=== PATIENT | female | born 1945 | race Caucasian/White ===

== ENCOUNTER → 2019-11-27 08:30 | Outpatient (BNVA) | payer MEDICARE, SELFPAY | PROVIDERS: Family Provider Nurse Practitioner Family; Visit Provider Nurse Practitioner Psychiatric/Mental Health | DX: F32.89 Other specified depressive episodes (principal); F41.0 Panic disorder [episodic paroxysmal anxiety]; F17.210 Nicotine dependence, cigarettes, uncomplicated | CPT/HCPCS: 99213 ==

== ENCOUNTER → 2020-03-25 09:58 | Outpatient (BNVA) | payer MEDICARE, SELFPAY | PROVIDERS: Family Provider Nurse Practitioner Family; Visit Provider Nurse Practitioner Psychiatric/Mental Health | DX: F41.0 Panic disorder [episodic paroxysmal anxiety]; F17.210 Nicotine dependence, cigarettes, uncomplicated; F33.1 Major depressive disorder, recurrent, moderate; F43.12 Post-traumatic stress disorder, chronic | CPT/HCPCS: 99213 ==

== ENCOUNTER 2020-08-06 14:04 | Emergency (ER) | payer MEDICARE, SELFPAY ==
[2020-08-06 14:14] VITALS: BP 118/75; PULSE 113; RESP 18; TEMP 36.3; O2SAT 98; BMI 28.7
[2020-08-06] MEDS: orphenadrine 30 mg/mL Inj 2 mL 60 MG IM (14:56)
[2020-08-06 14:58] VITALS: RESP 18
[2020-08-06] MEDS: morphine 4 mg/mL SDV 1 mL IM (14:58)
--- NOTE | 2020-08-06 15:36 | XR_ITS ---
WS: [id number] LUMBAR SPINE: 3 VIEWS TECHNIQUE: AP, lateral and L5-S1 spot. HISTORY: pain COMPARISON: 03/30/2017 Mild LEFT convex curvature lower lumbar spine. Mild disc space narrowing and endplate osteophytes thr oughout the lumbar spine. No fracture. Most significant disc space narrowing at L1-2. SI joints are symmetric bilaterally. No soft tissue abnormalities. Prior cholecystectomy. Surgical sutures are present in the pelvis. XR/XR lumbar spine 2-3V* [id number] IMPRESSION: Moderate chronic spondylitic changes in the lumbar spine. No acute fracture.
--- NOTE | 2020-08-06 15:36 | XR_ITS ---
WS: [id number] XR thoracic spine 3V* [id number] REASON FOR EXAM: pain FINDINGS: No thoracic vertebral body compression deformity or other focal vertebral body abnormality is identif ied. Disc space narrowing with osteophytic spurring T10 and L1. XR/XR thoracic spine 3V* [id number] IMPRESSION: No acute abnormality.
--- NOTE | 2020-08-06 15:49 | ED_ITS ---
HPI - Back Pain/Injury General: Chief Complaint: Back Pain/Injury Stated Complaint: SEVERE BACK PAIN, SENT FROM Time Seen by Provider: 08/06/20 14:19 History of Present Illness: HPI Narrative: 74-year-old female comes in complaining of mid to low back pain that she woke up with today. It was progressively worsening over the last couple days and then she woke up with severe pain in the left lower side adjacent to spine. She went to her primary care office and they directed her here. She denies any trauma she does not recall any particular episode that seem to precipitate that she has no difficulty with pain radiating to her legs no loss of bowel or bladder control no rash. MD elicited complaint: back pain Pertinent past history: prior back pain Onset (ago): day(s) Timing: constant Severity: severe Similar Symptoms Previously: Yes Quality: sharp Location: thoracic spine (lower ) Radiation: none Exacerbating factors: movement, sitting upright and walking Relieving factors: immobilization and supine Associated symptoms: Deny abdominal pain, arthralgias, chills, change in bowel habits, difficulty walking, dysuria, fatigue, fecal incontinence, fever(s), hematuria, myalgias, nausea, numbness, syncope, tingling/numbness/burning, urinary frequency, urinary urgency, vomiting or weakness Review of Systems Const: Denies: fever(s), chills or fatigue ENMT: Denies: throat pain, ear or mastoid pain, nasal discharge or nasal congestion Card: Denies: syncope Resp: Denies: dyspnea, productive cough or non-productive cough GI: Denies: abdominal pain, nausea, vomiting, fecal incontinence or change in bowel habits : Denies: dysuria, urinary urgency or hematuria Skin/Breast: Denies: rash or pruritus Neuro: Denies: difficulty walking PFS ED PFSH: Medical History Nicotine dependence, cigarettes, uncomplicated Other specified depressive episodes Panic attacks Physical Exam Const: COMMON NORMALS: no acute distress GENERAL APPEARANCE: cooperative and comfortable ORIENTATION/CONSCIOUSNESS: Yes awake, Yes oriented to person, Yes oriented to place and Yes oriented to time HENMT: COMMON NORMALS: normocephalic, atraumatic and hearing grossly normal bilaterally HEAD & SCALP: normocephalic and atraumatic Neck/C-Spine: COMMON NORMALS: full ROM, no lymphadenopathy, supple and no JVD Resp: COMMON NORMALS: normal respiratory effort, No retractions, No use of accessory muscles and clear to auscultation bilaterally AUSCULTATION: clear to auscultation bilaterally Cardio: COMMON NORMALS: no JVD, regular rate, regular rhythm and No murmurs present (Cardio) RATE: regular rate RHYTHM: regular rhythm GI: COMMON NORMALS: Soft to palpation and No hepatosplenomegaly present AUSCULTATION: Yes normoactive bowel sounds PALPATION: Yes Soft to palpation, No Tenderness to palpation present (GI), No Guarding due to palpation present (GI) and Yes No hepatosplenomegaly present Extremity: COMMON NORMALS: normal to inspection, capillary refill normal, no clubbing, cyanosis or edema, no calf tenderness and no pedal edema Neuro: SENSORIUM/ORIENTATION: Yes oriented to person, Yes oriented to place and Yes oriented to time Skin: COMMON NORMALS: no rashes or lesions noted GENERAL SKIN EXAM: no rashes or lesions noted Course Vital Signs: Vital signs: Vital Signs Temperature 97.4 F L 08/06/20 14:14 Pulse Rate 113 H 08/06/20 14:14 Respiratory Rate 18 08/06/20 14:58 Blood Pressure 118/75 08/06/20 14:14 Pulse Oximetry 98 08/06/20 14:14 MDM - Back Pain/Injury MDM Narrative: Medical decision making narrative: No compression fracture noted on plain x-ray we will go ahead and discharge home treat for musculoskeletal back pain follow-up with primary care if not improving Discharge Plan Discharge Patient Disposition: Home Clinical Impression: Thoracic back pain Condition: Stable Prescriptions: New tramadol 50 mg tablet 50 mg PO Q8H PRN (Reason: pain) Qty: 14 RF: 0 tizanidine 2 mg capsule 2 mg PO Q12H PRN (Reason: muscle spasticity) Qty: 14 RF: 0 No Action Janumet XR 50-1,000 mg tablet, ER multiphase 24 hr 1 tab PO DAILY@15 RF: 0 Trulicity 0.75 mg/0.5 mL pen injector 0.75 mg SUBCUT Q7D RF: 0 warfarin [Coumadin] 7.5 mg tablet See Rx Instructions .ROUTE .COMPLEX RF: 0 warfarin [Coumadin] 5 mg tablet 5 mg PO .COMPLEX RF: 0 Seroquel 200 mg Tablet 200 mg PO BEDTIME@03 RF: 0 clonazepam [Klonopin] 0.5 mg tablet 0.5 mg PO BEDTIME@03 RF: 0 gabapentin 300 mg capsule 300 mg PO TID@10,15,21 RF: 0 Discharge Orders: Discharge ED (Routine); Ordered 08/06/20 Ordered By: Therno Khan Referrals: Keena He PA [Primary Care Provider] - Discharge Diet: Usual diet Discharge Activity: Increase activity as tolerated Coding Level of Care Code ED [employer] Logger for Chg Fwd Exam Comprehensive
[2020-08-06 16:34] VITALS: BP 183/109; PULSE 88; RESP 16; O2SAT 97
== END 2020-08-06 16:34 | disposition home or self-care (01) ==
PROVIDERS: Emergency Provider Family Medicine; PCP Physician Assistant
DX: M54.6 Pain in thoracic spine (principal); Z79.01 Long term (current) use of anticoagulants
CPT/HCPCS: 12345; 72072; 72100; 96372; 99281; 99283; J2270; J2360

== ENCOUNTER → 2020-09-23 09:55 | Outpatient (BNVA) | payer MEDICARE, SELFPAY | PROVIDERS: PCP Physician Assistant; Visit Provider Nurse Practitioner Psychiatric/Mental Health | DX: F41.0 Panic disorder [episodic paroxysmal anxiety] (principal); F32.89 Other specified depressive episodes; Z79.899 Other long term (current) drug therapy; F17.210 Nicotine dependence, cigarettes, uncomplicated | CPT/HCPCS: 99214 ==

== ENCOUNTER → 2020-11-03 14:03 | Outpatient (BNVA) | payer MEDICARE, SELFPAY | PROVIDERS: PCP Physician Assistant; Visit Provider Nurse Practitioner Psychiatric/Mental Health | DX: Z79.899 Other long term (current) drug therapy (principal) | CPT/HCPCS: 80053; 80061; 83036 ==

== ENCOUNTER 2020-11-28 11:30 | Emergency (ER) | payer MEDICARE, SELFPAY ==
[2020-11-28 11:39] VITALS: BP 150/87; PULSE 98; RESP 20; TEMP 36.9; O2SAT 97; BMI 29.9
--- NOTE | 2020-11-28 12:36 | CT_ITS ---
WS: [id number] CT LUMBAR SPINE, noncontrast. HISTORY: sudden onset back pain TECHNIQUE: Contiguous 2.5 mm axial imaging are performed. Sagittal and coronal reformats are submitte d and reviewed. All CT scans at [facility] use at least one of these dose optimization te chniques: automated exposure control; mA and/or kV adjustment per patient size (includes targeted exa ms where dose is matched to clinical indication); or iterative reconstruction. IV contrast: None DLP: 2561.03 mGy.cm COMPARISON: 10/26/2018 Diffuse osteopenia. 5 mm retrolisthesis of L1 and L2. Endplate cystic changes at L4. No fractures. Di sc spaces are narrowed. Endplate osteophytes at all levels. L1-2: Mild disc bulging. No stenosis. L2-3: Diffuse osteophytic ridging and disc bulging. LEFT disc osteophyte causing mild effacement LEFT lateral thecal sac and narrowing of the LEFT foramen. L3-4: Mild annular disc bulging with effacement of the ventral CSF. Mild central stenosis. L4-5: Mild annular disc bulging with ligamentum flavum hypertrophy. Mild central and bilateral forami nal stenosis. L5-S1: Broad-based disc bulging centrally with mild encroachment upon the S1 nerve roots. Anastomotic sutures noted near the rectum. Atherosclerotic changes within the aorta. CT/CT lumbar spine wo con* [id number] IMPRESSION: 1. No acute lumbar spine fracture identified. 2. Multilevel moderate spondylitic changes with only mild progression since 10/26/2018. 3. Mild encroachment upon the S1 nerve roots bilaterally by disc disease. 4. Mild central stenosis at L3-4. 5. Mild central and bilateral foraminal stenosis at L4-5. 6. Disc osteophyte at L2-3 with mild encroachment upon the LEFT lateral thecal sac and foramen.
[2020-11-28] MEDS: ketorolac 30 mg/mL INJ IM (12:44)
[2020-11-28] MEDS: orphenadrine 30 mg/mL Inj 2 mL 60 MG IM (12:44)
--- NOTE | 2020-11-28 13:12 | W.ED.BACK ---
HPI - Back Pain/Injury General: Chief Complaint: Back Pain/Injury Stated Complaint: LOWER BACK PAIN Time Seen by Provider: 11/28/20 12:06 History of Present Illness: HPI Narrative: Sudden onset back pain that started last night. Pain is located on the right side of her back and in her lumbar spine. Pain is severe, radiates down her legs. She denies any weakness, paresthesia or tingling, fecal or urinary incontinence or perianal anesthesia. She had some similar happen about 4 or 5 months ago and improved following pain medication and muscle relaxants. She denies any trauma or falls recently. MD elicited complaint: back pain Pertinent past history: prior back pain Onset (ago): day(s) (1) Timing: constant Severity: severe Quality: sharp Location: lumbar spine Radiation: left leg below the knee and right leg below the knee Exacerbating factors: movement and sitting upright Relieving factors: supine Associated symptoms: Deny abdominal pain, arthralgias, chills, change in bowel habits, difficulty walking, dysuria, fatigue, fecal incontinence, fever(s), hematuria, myalgias, nausea, numbness, syncope, tingling/numbness/burning, urinary frequency, urinary urgency, vomiting or weakness Treatments prior to arrival: acetaminophen Review of Systems General: Reports: 10 or more systems reviewed and unremarkable except in HPI and below Const: Denies: fever(s), chills or fatigue Card: Denies: syncope GI: Denies: abdominal pain, nausea, vomiting, fecal incontinence or change in bowel habits : Denies: dysuria, urinary urgency or hematuria Neuro: Denies: difficulty walking [facility] ED PFSH: Medical History Nicotine dependence, cigarettes, uncomplicated Other specified depressive episodes Panic attacks Physical Exam Const: COMMON NORMALS: no acute distress, average body habitus, patient oriented x3, no limitations, healthy appearing, alert and well nourished HENMT: COMMON NORMALS: normocephalic, atraumatic and moist oral mucous membranes HEAD & SCALP: normocephalic and atraumatic Neck/C-Spine: COMMON NORMALS: no meningeal signs and no JVD Resp: COMMON NORMALS: normal respiratory effort, No retractions, No use of accessory muscles, clear to auscultation bilaterally and percussion normal AUSCULTATION: clear to auscultation bilaterally PERCUSSION: percussion normal Cardio: COMMON NORMALS: no JVD, regular rate, regular rhythm, S1 normal heart sound present, S2 normal heart sound present, No gallops present (Cardio), No clicks present (Cardio), No murmurs present (Cardio), No rub (Cardio) and Peripheral pulses 2+ throughout RATE: regular rate RHYTHM: regular rhythm HEART SOUNDS: S1 normal heart sound present and S2 normal heart sound present PERIPHERAL PULSES: Peripheral pulses 2+ throughout GI: COMMON NORMALS: Normal to inspection, nondistended, normoactive bowel sounds present, Soft to palpation, non-tender, No hepatosplenomegaly present, no masses and no bruits PALPATION: Yes Soft to palpation and Yes No hepatosplenomegaly present Back/Pelvis: LUMBAR SPINE/LOWER BACK: Yes normal to inspection, Yes lumbar spinal tenderness, Yes paraspinal muscle tenderness, Yes paraspinal muscle spasm and Yes straight leg raise negative bilaterally Extremity: COMMON NORMALS: normal to inspection, full ROM, capillary refill normal, no calf tenderness and no pedal edema Neuro: COMMON NORMALS: patient oriented x3 SENSORIUM/ORIENTATION: Yes alert MENINGEAL SIGNS: Yes no meningeal signs Skin: COMMON NORMALS: no rashes or lesions noted, no wounds, turgor normal, no jaundice, no petechiae and no mottling GENERAL SKIN EXAM: no rashes or lesions noted and turgor normal Course Reevaluation(s): Reevaluation #1: Discussed her imaging findings with her, she has several degenerative disks as well as mild spinal stenosis. I believe this is responsible for her symptoms. Pain improved with intramuscular medication and she is discharged home with a prescription for hydrocodone and a muscle relaxant. She voiced understanding and is in agreement with the plan. Time: 13:42 Vital Signs: Vital signs: Vital Signs Temperature 98.4 F 11/28/20 11:39 Pulse Rate 98 11/28/20 11:39 Respiratory Rate 20 H 11/28/20 11:39 Blood Pressure 150/87 11/28/20 11:39 Pulse Oximetry 97 11/28/20 11:39 MDM - Back Pain/Injury MDM Narrative: Medical decision making narrative: 74-year-old female patient who presents to the emergency department with back pain. Evaluation in the emergency department is consistent with degenerative disc disease and spondylosis. She is managed as a case of lumbar radicular pain and is discharged home with pain medication and muscle relaxants. Medical Records: Attestation: I reviewed the patient's medical records. Imaging Data^: Other CT: Attestation: I personally reviewed and interpreted this imaging study as follows: Radiologist's impression: [address] [address] [address] Scan Report Signed Patient: Silva Woods #: [id number] : 5Acct#:[id number] Age/Sex: 74 / FADM Date: 11/28/20 Loc: ERRoom/Bed: Attending Dr: Ordering Provider/Ordering MD: Tima [place] [facility] [place] Service: 11/28/20 Procedure(s): CT lumbar spine wo con* [id number] Accession Number(s): [id number] Report Number: [id number] WS: [id number] CT LUMBAR SPINE, noncontrast. HISTORY: sudden onset back pain TECHNIQUE: Contiguous 2.5 mm axial imaging are performed. Sagittal and coronal reformats are submitted and reviewed. All CT scans at [facility] use at least one of these dose optimization techniques: automated exposure control; mA and/or kV adjustment per patient size (includes targeted exams where dose is matched to clinical indication); or iterative reconstruction. IV contrast: None DLP: 2561.03 mGy.cm COMPARISON: 10/26/2018 Diffuse osteopenia. 5 mm retrolisthesis of L1 and L2. Endplate cystic changes at L4. No fractures. Disc spaces are narrowed. Endplate osteophytes at all levels. L1-2: Mild disc bulging. No stenosis. L2-3: Diffuse osteophytic ridging and disc bulging. LEFT disc osteophyte causing mild effacement LEFT lateral thecal sac and narrowing of the LEFT foramen. L3-4: Mild annular disc bulging with effacement of the ventral CSF. Mild central stenosis. L4-5: Mild annular disc bulging with ligamentum flavum hypertrophy. Mild central and bilateral foraminal stenosis. L5-S1: Broad-based disc bulging centrally with mild encroachment upon the S1 nerve roots. Anastomotic sutures noted near the rectum. Atherosclerotic changes within the aorta. CT/CT lumbar spine wo con* [id number] IMPRESSION: 1. No acute lumbar spine fracture identified. 2. Multilevel moderate spondylitic changes with only mild progression since 10/26/2018. 3. Mild encroachment upon the S1 nerve roots bilaterally by disc disease. 4. Mild central stenosis at L3-4. 5. Mild central and bilateral foraminal stenosis at L4-5. 6. Disc osteophyte at L2-3 with mild encroachment upon the LEFT lateral thecal sac and foramen. Dictated By:Анна Lin DO Signed By:Анна Lin DOSigned Date/Time:11/28/20 1327 DD/ 1324 Discharge Plan Discharge Patient Disposition: Home Clinical Impression: Lumbar spondylosis, DDD (degenerative disc disease), lumbar Condition: Stable Prescriptions: New hydrocodone-acetaminophen 5-325 mg tablet 1 tab PO Q8H PRN (Reason: pain) Qty: 6 RF: 0 baclofen 10 mg tablet 5 mg PO Q8H Qty: 30 RF: 0 Continued Janumet XR 50-1,000 mg tablet, ER multiphase 24 hr 1 tab PO DAILY@18 RF: 0 Trulicity 0.75 mg/0.5 mL pen injector 0.75 mg SUBCUT Q7D RF: 0 gabapentin 300 mg capsule 300 mg PO TID Qty: 90 RF: 4 atorvastatin 20 mg tablet 20 mg PO BEDTIME RF: 0 aspirin 325 mg Tablet 325 mg PO DAILY RF: 0 warfarin 7.5 mg Tablet 7.5 mg PO BEDTIME RF: 0 propranolol 40 mg tablet 40 mg PO BID RF: 0 metformin 500 mg tablet extended release 24 hr 500 mg PO BID RF: 0 Klonopin 0.5 mg tablet 0.5 mg PO BEDTIME RF: 0 Seroquel 200 mg tablet 200 mg PO BEDTIME RF: 0 Discharge Orders: Discharge ED (Routine); Ordered 11/28/20 Ordered By: Tima Colorado Referrals: Keena He PA [Primary Care Provider] - 1-3 days Discharge Diet: Usual diet Discharge Activity: Limit activity as instructed Patient Instructions: Lumbar Radiculopathy (ED), Opioid Safety Activity Restrictions/Additional Instructions: Return for any new or worsening symptoms. Follow-up with your primary care provider within 3 days. Take your medications as prescribed. Rest your back for a day or 2 and then gradually return to your prior levels of activity over several days. Coding Level of Care Code ED [employer] Supervisor for [employer] Fwd Exam Comprehensive
[2020-11-28] MEDS: morphine 4 mg/mL SDV 1 mL IM (14:05)
== END 2020-11-28 14:09 | disposition home or self-care (01) ==
PROVIDERS: Emergency Provider Family Medicine; PCP Physician Assistant
DX: M47.816 Spondylosis without myelopathy or radiculopathy, lumbar region (principal); M51.36 Other intervertebral disc degeneration, lumbar region; Z79.82 Long term (current) use of aspirin; Z79.01 Long term (current) use of anticoagulants; Z79.84 Long term (current) use of oral hypoglycemic drugs; F17.210 Nicotine dependence, cigarettes, uncomplicated
CPT/HCPCS: 72131; 96372; 99283; J1885; J2270; J2360

== ENCOUNTER → 2020-12-16 09:06 | Outpatient (BNVA) | payer MEDICARE, SELFPAY | PROVIDERS: PCP Physician Assistant; Visit Provider Nurse Practitioner Psychiatric/Mental Health | DX: F32.89 Other specified depressive episodes (principal); F41.0 Panic disorder [episodic paroxysmal anxiety]; F17.210 Nicotine dependence, cigarettes, uncomplicated; Z79.899 Other long term (current) drug therapy | CPT/HCPCS: 99214 ==

== ENCOUNTER 2021-01-19 16:54 | Emergency (ER) | payer MEDICARE, SELFPAY ==
[2021-01-19 17:02] VITALS: BP 130/81; PULSE 102; RESP 18; TEMP 36.8; O2SAT 94; BMI 29.8
--- NOTE | 2021-01-19 17:58 | CTR_ITS ---
PROCEDURE INFORMATION: Exam: CT Thoracic Spine Without Contrast Exam date and time: 01/19/2021 6:39 PM Age: 75 years old Clinical indication: Pain in thoracic spine; Patient HX: Pain in middle of back x 1 day after heavy lifting. ; Additional info: Acute on chronic pain TECHNIQUE: Imaging protocol: Computed tomography images of the thoracic spine without contrast. Radiation optimization: All CT scans at this facility use at least one of these dose optimization techniques: automated exposure control; mA and/or kV adjustment per patient size (includes targeted exams where dose is matched to clinical indication); or iterative reconstruction. COMPARISON: CR XR thoracic spine 3V* [id number] 08/06/2020 3:50 PM RADIATION DOSE METRICS: Total DLP (mGy-cm): 1367.39 FINDINGS: Vertebrae: No acute fracture. Normal alignment. Diffuse moderate degenerative changes are noted with disc space narrowing, sclerosis and small marginal osteophytes. Vacuum discs are noted at T9-10, T10-11 and T11-12. Probable intraosseous hemangiomas are noted in T11 and T12. Discs/Spinal canal/Neural foramina: No significant disc protrusion. No severe spinal canal stenosis. No significant neural foraminal narrowing. Soft tissues: Unremarkable. Lungs: There is subpleural atelectasis of the dependent portions of the lungs. Mediastinum: A large hiatal hernia is present. Gallbladder and bile ducts: There has been a cholecystectomy. Stomach and bowel: The wall of the stomach is mildly thickened and this may reflect lack of complete distention. There is no induration of the fat adjacent to the stomach within the hiatal hernia to suggest gastric ischemia. CT/CT thoracic spin wo con* [id number] IMPRESSION: 1. No acute bony abnormality. Moderate degenerative changes are noted. 2. Large hiatal hernia. Radiation Dose CTDIVOL = (mGy): DLP = 1367.39 (mGy-cm)
--- NOTE | 2021-01-19 17:59 | ECG_ITS ---
[facility] Test Date: 2021-01-19 Pat Name: Michelle Woods Department: Room: Gender: Female Prescription Eyeglass Maker: : 1945 Requested By: Loree Wallace Order Number: [id number] Leonardo MD: Andrea Coleman M.D. Measurements Intervals [place] Rate: 87 P: 75 GA: 252 QRS: 62 QRSD: 74 T: 83 QT: 359 QTc: 434 Interpretive Statements SINUS RHYTHM WITH FIRST DEGREE AV BLOCK Compared to ECG 02/15/2018 22:11:39 No significant changes Electronically Signed On 01-19-2021 18:23:25 CDT by Andrea Coleman M.D. [id number]
[2021-01-19 18:26] VITALS: RESP 18
[2021-01-19] MEDS: dexamethasone 10 mg/mL INJ IM (18:26)
[2021-01-19] MEDS: morphine 4 mg/mL SDV 1 mL IM (18:26)
[2021-01-19 20:04] VITALS: BP 166/94; PULSE 77; RESP 19; O2SAT 96
--- NOTE | 2021-01-19 20:41 | ED_ITS ---
HPI - Back Pain/Injury General: Chief Complaint: Back Pain/Injury Stated Complaint: Severe Back Pain, N/V Time Seen by Provider: 01/19/21 17:49 Source: patient Mode of arrival: ambulatory Limitations: no limitations History of Present Illness: HPI Narrative: 75 yo female patient presents to ER with chronic back pain. 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 Pt denies any specefic injury or trauma. Pt denies chest pain or SOB or ever. pt denies hx of cancer or IV drug abuse. Associated symptoms: Deny abdominal pain, chills, change in bowel habits, difficulty walking, dysuria, fatigue, fever(s), hematuria, nausea, syncope, urinary urgency or vomiting Review of Systems Const: Denies: fever(s), chills, body aches, change in appetite, change in weight, fatigue, malaise or diaphoresis Eyes: Denies: change in vision, blurry vision, blind spots, photophobia, eye discomfort, eye discharge, eye redness, floaters or seeing flashes ENMT: Denies: throat pain, uvular edema, enlarged tonsils, odynophagia, hoarseness, mouth pain, swelling of lips/tongue, oral sores, bleeding gums, dental pain, dry mouth, ear or mastoid pain, ear discharge, change in hearing, tinnitus, disequilibrium, nasal discharge, nasal congestion, post nasal drip or sinus pain Card: Denies: chest pain, palpitations, irregular heart rhythm, edema, swelling of feet/ankles, lightheadedness, syncope, pre-syncope, dyspnea on exertion, orthopnea, leg pain with exertion or acrocyanosis Resp: Denies: dyspnea, productive cough, non-productive cough, wheezing, stri maryuri, pain on inspiration, change in phlegm color, hemoptysis or chest congestion GI: Denies: abdominal pain, nausea, vomiting, hematemesis, dysphagia, diarrhea, constipation, GI cramping, change in bowel habits or rectal pain : Denies: flank pain, difficulty voiding, dysuria, urinary frequency, urinary urgency, urinary hesitancy or hematuria Musc: Reports: back pain; Denies: neck pain, extremity pain, extremity swelling, joint pain, joint swelling, joint redness, joint warmth or deformity Skin/Breast: Denies: rash, pruritus, erythema, sores, new lesions, changes in skin color or dry skin Neuro: Denies: headache(s), numbness in extremities, weakness in extremities, sensory changes, lack of coordination, difficulty walking, frequent falls, dizziness, vertigo, confusion, behavioral changes, Slurred speech present, difficulty communicating thoughts or seizure-like activity Psych: Denies: anxiety, depression, suicidal ideation or homicidal ideation Endo: Denies: polyuria, polydipsia, tired all the time, cold intolerance, excessive sweating, flushing, hot flashes or heat intolerance Samir/Lymph: Denies: easy bruising, easy bleeding, petechiae, purpura, enlarged lymph nodes or tender lymph nodes All/Imm: Denies: urticaria, throat swelling, tongue swelling, facial swelling, acute wheezing or itchy eyes PFSH ED PFSH: Medical History Nicotine dependence, cigarettes, uncomplicated Other specified depressive episodes Panic attacks Physical Exam Const: COMMON NORMALS: no acute distress, patient oriented x3, healthy appearing, alert and well nourished GENERAL APPEARANCE: cooperative, comfortable, well kempt and well developed; not ill appearing ORIENTATION/CONSCIOUSNESS: Yes awake, Yes oriented to person, Yes oriented to place and Yes oriented to time HENMT: COMMON NORMALS: normocephalic, atraumatic, hearing grossly normal bilaterally, external ears normal, EAC's normal, TM's normal bilaterally, Normal external nose present, Normal nasal mucous membranes and turbinates present and moist oral mucous membranes HEAD & SCALP: normal to inspection, normocephalic and atraumatic FACE & SINUS: normal facial exam, sinuses nontender and face symmetric NOSE: Normal external nose present, Normal nares present, Normal nasal mucous membranes and turbinates present, No nasal discharge present and Abnormal external nose present EXTERNAL EAR: Yes external ears normal and Yes mastoids normal EXTERNAL AUDITORY CANAL: EAC's normal TYMPANIC MEMBRANE: TM's normal bilaterally MOUTH: Normal oral and palatal mucosa present, lip normal, tongue normal and Normal salivary glands and ducts present THROAT: no uvular edema Eye: COMMON NORMALS: Equal, round and reactive pupils present, EOMs intact bilaterally, conjunctivae normal, no scleral icterus and no papilledema GENERAL EYE: appearance normal, both eyes and all related structures EYELID: eyelids normal CONJUNCTIVA: Yes conjunctivae normal SCLERA: sclerae normal CORNEA: Yes corneas normal PUPIL: Yes Equal, round and reactive pupils present DIRECT OPHTHALMOSCOPY: Yes no papilledema Neck/C-Spine: COMMON NORMALS: full ROM, no lymphadenopathy, supple, no meningeal signs, no JVD and Thyroid normal GENERAL: Yes normal visual inspection and Yes trachea midline THYROID: Thyroid normal CERVICAL SPINE: Yes cervical ROM normal Lymph: LYMPHATIC: no lymphadenopathy noted and no lymphedema noted Chest: COMMONS NORMALS: normal inspection of the chest and normal palpation of entire chest wall Resp: COMMON NORMALS: normal respiratory effort, No retractions, No use of accessory muscles and clear to auscultation bilaterally EFFORT & INSPECTION: Yes able to speak in complete sentences and Yes symmetric chest movement AUSCULTATION: clear to auscultation bilaterally Cardio: COMMON NORMALS: no JVD, regular rate and regular rhythm RATE: regular rate RHYTHM: regular rhythm GI: COMMON NORMALS: Normal to inspection, nondistended, normoactive bowel sounds present, Soft to palpation, non-tender, No hepatosplenomegaly present, no masses and no bruits INSPECTION: Yes normal to inspection AUSCULTATION: Yes normoactive bowel sounds PALPATION: Yes Soft to palpation and Yes No hepatosplenomegaly present PERCUSSION: normal to percussion RECTAL EXAM: deferred : COMMON NORMALS: Yes no CVA tenderness, Yes normal external appearance, Yes normal appearance of the vagina, Yes normal appearance of the cervix, Yes normal bimanual exam, Yes No adnexal tenderness and Yes no masses BLADDER/KIDNEY EXAM: Yes no CVA tenderness BIMANUAL EXAM - VAGINA & UTERUS: Yes normal bimanual exam Back/Pelvis: COMMON NORMALS: no CVA tenderness, thoracic and lumbar spine normal to inspection, no thoracic nor lumbar tenderness, thoraco-lumbar ROM normal and straight leg raise negative bilaterally THORACIC SPINE/UPPER BACK: Yes normal to inspection and Yes thoracic spinal tenderness LUMBAR SPINE/LOWE R BACK: Yes normal to inspection BACK IMAGE (FEMALE): 1. pain when palpated Extremity: COMMON NORMALS: normal to inspection, full ROM and capillary refill normal GENERAL: Yes normal exam except as noted Neuro: COMMON NORMALS: patient oriented x3, CN's II-XII intact bilaterally, moves all extremities, no focal motor deficits, no sensory deficits noted, deep tendon reflexes 2+ bilaterally and gait normal SENSORIUM/ORIENTATION: Yes alert, Yes oriented to person, Yes oriented to place and Yes oriented to time MENINGEAL SIGNS: Yes no meningeal signs CRANIAL NERVES: Yes CN normal except as noted SPEECH: speech normal GAIT: Yes Normal gait present SENSORY E XAM: Yes extremities MOTOR EXAM: 5/5 motor strength present throughout Psych: COMMON NORMALS: mental status grossly normal, Normal thought process present, cooperative, normal affect, speech normal, activity/motor behavior normal, denies hallucinations, denies homicidal ideation and denies suicidal ideation APPEARANCE: Yes grossly normal and Yes well kempt ATTITUDE: Yes calm ACTIVITY/MOTOR BEHAVIOR: Yes appropriate eye contact SPEECH: Yes normal speech THOUGHT PROCESS: Normal thought process present THOUGHT CONTENT: Yes Normal thought content present ATTENTION/CONCENTRATION: Yes attention grossly intact MEMORY/COGNITION: Yes memory grossly intact INSIG HT: Good insight present (Psych) JUDGEMENT: Good judgement present (Psych) Skin: COMMON NORMALS: no rashes or lesions noted, no wounds, turgor normal, no jaundice, no petechiae and no mottling GENERAL SKIN EXAM: no rashes or lesions noted and turgor normal Course Vital Signs: Vital signs: Vital Signs Temperature 98.3 F 01/19/21 17:02 Pulse Rate 77 01/19/21 20:04 Respiratory Rate 19 H 01/19/21 20:04 Blood Pressure 166/94 01/19/21 20:04 Pulse Oximetry 96 01/19/21 20:04 MDM - Back Pain/Injury MDM Narrative: Medical decision making narrative: Pt is well appearing non toxic and in no acute distress. 75 yo female patient presents to ER with chronic back pain. 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 Pt denies any specefic injury or trauma. Pt denies chest pain or SOB or ever. pt denies hx of cancer or IV drug abuse. Pts pain was reproducable. Pt had no numbness or tingling. no loss of bowel or bladder. ct did not reveal any acute findings. EKG does not reveal any st elevation or depression. Pt was given morphine and decadron and had resolution of pain. Return precautions advised and reviewed Discharge Plan Discharge Patient Disposition: Home Clinical Impression: Thoracic back pain Qualifiers: Chronicity: chronic Back pain laterality: midline Qualified Code(s): M54.6 - Pain in thoracic spine Condition: Stable Prescriptions: New prednisone 20 mg tablet 20 mg PO BID 5 Days Qty: 10 RF: 0 No Action Janumet XR 50-1,000 mg tablet, ER multiphase 24 hr 1 tab PO DAILY RF: 0 Trulicity 0.75 mg/0.5 mL pen injector 0.75 mg SUBCUT Q7D RF: 0 gabapentin 300 mg capsule 300 mg PO TID Qty: 90 RF: 4 Klonopin 0.5 mg tablet 0.5 mg PO BEDTIME RF: 0 Seroquel 200 mg tablet 200 mg PO BEDTIME RF: 0 atorvastatin 20 mg tablet 20 mg PO BEDTIME RF: 0 warfarin 7.5 mg Tablet See Rx Instructions .ROUTE .COMPLEX RF: 0 propranolol 40 mg tablet 40 mg PO BID RF: 0 baclofen 10 mg tablet 5 mg PO Q8H Qty: 30 RF: 0 Discharge Orders: Discharge ED (Routine); Ordered 01/19/21 Ordered By: Loree Wallace Referrals: Keena He PA [Primary Care Provider] - Discharge Diet: Advance as tolerated Discharge Activity: Increase activity as tolerated Patient Instructions: Back Pain (ED), Opioid Safety Activity Restrictions/Additional Instructions: Take meds as directed Return to the emergency department if: You have pain, numbness, or weakness in one or both legs. Your pain becomes so severe that you cannot walk. You cannot control your urine or bowel movements. You have severe back pain with chest pain. You have severe back pain, nausea, and vomiting. You have severe back pain that spreads to your side or genital area. Coding Level of Care Code ED Dry Cleaner Helper for Abdoul Montgomery
== END 2021-01-19 20:04 | disposition home or self-care (01) ==
PROVIDERS: Emergency Provider Registered Nurse; PCP Physician Assistant
DX: G89.29 Other chronic pain (principal); M54.6 Pain in thoracic spine; Z79.01 Long term (current) use of anticoagulants
CPT/HCPCS: 72128; 93005; 96372; 99283; J1100; J2270

== ENCOUNTER → 2021-03-16 07:18 | Outpatient (BNVA) | payer MEDICARE, SELFPAY | PROVIDERS: PCP Physician Assistant; Visit Provider Nurse Practitioner Psychiatric/Mental Health | DX: F32.89 Other specified depressive episodes (principal); F41.0 Panic disorder [episodic paroxysmal anxiety]; F17.210 Nicotine dependence, cigarettes, uncomplicated | CPT/HCPCS: 99214 ==

== ENCOUNTER 2021-03-20 13:41 | Outpatient (RCR) | payer MEDICARE, SELFPAY | END 2021-03-21 23:59 | disposition home or self-care (01) | LOC: SPT 13:41 | PROVIDERS: PCP Physician Assistant; Referring Provider Physician Assistant; Visit Provider Physician Assistant | DX: M54.5 Low back pain (principal) | CPT/HCPCS: 97110; 97162 ==

== ENCOUNTER 2021-06-06 18:54 | Emergency (ER) | payer MEDICARE, SELFPAY ==
[2021-06-06 19:08] VITALS: BP 162/85; PULSE 90; RESP 18; TEMP 36.6; O2SAT 96; BMI 29.7
[2021-06-06 19:24] VITALS: BP 149/90; PULSE 80; RESP 16; TEMP 37.1; O2SAT 97
--- NOTE | 2021-06-06 19:34 | W.ED.BACK ---
HPI - Back Pain/Injury General: Chief Complaint: Back Pain/Injury Stated Complaint: Injury Back Pain Extreme Pain Time Seen by Provider: 06/06/21 19:28 History of Present Illness: HPI Narrative: 75-year-old female comes in today with mid back pain. Patient reports that she was walking in the kitchen and stepped on the back which caused her to slip and hit her back against the counter. Patient has some chronic degenerative disc disease and occasionally will strain her back which caused an exacerbation of pain. Patient denies any falls to the floor. Patient had taken some Tylenol at home but was not able to get her pain under control. Patient appears well. Patient appears no acute distress. Review of Systems General: Reports: 10 or more systems reviewed and unremarkable except in HPI and below Musc: Reports: back pain PFS ED PFSH: Medical History Nicotine dependence, cigarettes, uncomplicated Other specified depressive episodes Panic attacks Physical Exam Const: COMMON NORMALS: no acute distress and patient oriented x3 GENERAL APPEARANCE: cooperative HENMT: COMMON NORMALS: normocephalic and Normal external nose present HEAD & SCALP: normal to inspection and normocephalic NOSE: Normal external nose present Eye: GENERAL EYE: appearance normal, both eyes and all related structures Neck/C-Spine: COMMON NORMALS: full ROM Chest: COMMONS NORMALS: normal inspection of the chest Resp: COMMON NORMALS: normal respiratory effort EFFORT & INSPECTION: Yes able to speak in complete sentences Cardio: COMMON NORMALS: regular rate and regular rhythm RATE: regular rate RHYTHM: regular rhythm GI: COMMON NORMALS: non-tender : COMMON NORMALS: Yes no CVA tenderness BLADDER/KIDNEY EXAM: Yes no CVA tenderness Back/Pelvis: COMMON NORMALS: no CVA tenderness THORACIC SPINE/UPPER BACK: Yes normal to inspection LUMBAR SPINE/LOWER BACK: Yes lumbar spinal tenderness Lumbar spinal tenderness location: L1 and Yes paraspinal muscle tenderness Extremity: COMMON NORMALS: normal to inspection Neuro: COMMON NORMALS: patient oriented x3 and moves all extremities Psych: COMMON NORMALS: mental status grossly normal and cooperative Skin: COMMON NORMALS: no rashes or lesions noted GENERAL SKIN EXAM: no rashes or lesions noted Course Vital Signs: Vital signs: Vital Signs Temperature 98.7 F 06/06/21 19:24 Pulse Rate 80 06/06/21 19:24 Respiratory Rate 16 06/06/21 19:24 Blood Pressure 149/90 06/06/21 19:24 Pulse Oximetry 97 06/06/21 19:24 MDM - Back Pain/Injury MDM Narrative: Medical decision making narrative: 75-year-old female comes in today with mid back pain. Patient has a history of degenerative disc disease. Patient had slipped on a bag at home and reportedly did not fall to the ground but did not strike her back against the counter. Patient reports some mid back pain since then. It is localized in the area of the back. No radiation is noted. Patient is able to ambulate with minimal discomfort. Differential diagnosis includes but not limited to contusion, lumbar strain, facet arthropathy, intervertebral disc disease. Patient did not want x-rays at this time. Patient reports that she was just unable to get control of her pain with Tylenol at home which brought her to the emergency department. On exam we note some tenderness of the soft tissue of the upper lumbar area around L1. Negative leg lift test. And no signs of cauda equina syndrome was noted. Patient was given 4 mg of morphine and 60 mg orphenadrine for her discomfort. Patient will be continued on some hydrocodone for short course for her pain control. No prescriptions of hydrocodone has been initialized in the last 30 days as I could tell on review of her medical record. Patient reported understanding of care plan and need for follow-up or return to the ER. Discharge Plan Discharge Patient Disposition: Home Clinical Impression: Contusion of mid back Qualifiers: Encounter type: initial encounter Laterality: unspecified laterality Qualified Code(s): S20.229A - Contusion of unspecified back wall of thorax, initial encounter Condition: Stable Prescriptions: New hydrocodone-acetaminophen 5-325 mg tablet 1 tab PO Q8H PRN (Reason: pain (scale score 7-10)) Qty: 9 RF: 0 No Action Janumet XR 50-1,000 mg tablet, ER multiphase 24 hr 1 tab PO DAILY RF: 0 Trulicity 0.75 mg/0.5 mL pen injector 0.75 mg SUBCUT Q7D RF: 0 Seroquel 200 mg tablet 200 mg PO BEDTIME Qty: 30 RF: 6 gabapentin 300 mg capsule 300 mg PO TID Qty: 90 RF: 6 Klonopin 0.5 mg tablet 0.5 mg PO BEDTIME Qty: 30 RF: 3 atorvastatin 20 mg tablet 20 mg PO BEDTIME RF: 0 warfarin 7.5 mg Tablet See Rx Instructions .ROUTE .COMPLEX RF: 0 propranolol 40 mg tablet 40 mg PO BID RF: 0 Discharge Orders: Discharge ED (Routine); Ordered 06/06/21 Ordered By: Jaret Arthur Referrals: Keena He PA [Primary Care Provider] - Discharge Diet: Usual diet Discharge Activity: Increase activity as tolerated Patient Instructions: Back Pain (ED), Opioid Safety Activity Restrictions/Additional Instructions: Maintain activity as much as possible. Use acetaminophen to help control pain. Use ice or heat for further pain relief. Take hydrocodone as needed for breakthrough pain. Follow-up with primary care for further instruction. Return to the ER for worsening symptoms or new concerns. Coding Level of Care Code ED Labor Delivery Rn for Abdoul Montgomery Exam Comprehensive
[2021-06-06] MEDS: orphenadrine 30 mg/mL Inj 2 mL 60 MG IM (19:52)
[2021-06-06] MEDS: morphine 4 mg/mL SDV 1 mL IM (19:53)
[2021-06-06 20:04] VITALS: BP 142/85; PULSE 78; RESP 18; O2SAT 98
== END 2021-06-06 20:02 | disposition home or self-care (01) ==
PROVIDERS: Emergency Provider Nurse Practitioner Family; PCP Physician Assistant
DX: S20.229A Contusion of unspecified back wall of thorax, initial encounter (principal); Z79.01 Long term (current) use of anticoagulants; W01.198A Fall on same level from slipping, tripping and stumbling with subsequent striking against other object, initial encounter
CPT/HCPCS: 96372; 99283; J2270; J2360

== ENCOUNTER 2021-07-18 13:11 | Emergency (ER) | payer MEDICARE, SELFPAY ==
[2021-07-18 13:31] VITALS: BP 153/80; PULSE 88; RESP 16; TEMP 36.7; O2SAT 98; BMI 29.8
[2021-07-18 14:01] LABS: Basophils # 0.1 10^3/uL (0.0-0.1); Basophils % 0.9 %; Eosinophils # 0.1 10^3/uL (0.0-0.8); Eosinophils % 1.5 %; Hematocrit 47.4 % (37.0-47.0); Hemoglobin 16.1 g/dL (11.5-15.3); Lymphocytes # 1.2 10^3/uL (0.8-4.8); Lymphocytes % 18.8 %; Mean Corpuscular Hemoglobin 30.6 pg (28.0-34.0); Mean Corpuscular Volume 90.1 fl (81-99); Mean Platelet Volume 10.7 fL (7.4-10.4); Monocytes # 0.6 10^3/uL (0.2-0.9); Monocytes % 8.5 %; Neutrophils # 4.51 10^3/uL (1.8-7.7); Neutrophils % 69.7 %; Nucleated Red Blood Cells % 0 %; Platelet Count 217 10^3/cmm (130-400); Red Blood Count 5.26 10^6/uL (4.1-5.3); Red Cell Distribution Width 13.6 % (12.1-15.1); White Blood Count 6.5 10^3/uL (4.0-10.0)
[2021-07-18 14:42] LABS: Add Urine Microscopic? NO; Charge for UA Resulting for Rev
[2021-07-18 14:49] LABS: Alanine Aminotransferase 8 U/L (0-33); Albumin Level 4.3 g/dL (3.5-5.2); Alkaline Phosphatase 76 IU/L (35-105); Anion Gap 18.2 (5-19); Aspartate Amino Transferase 14 U/L (0-32); Blood Urea Nitrogen 11 mg/dL (8-23); Calcium 9.1 mg/dL (8.5-10.5); Carbon Dioxide 22 mmol/L (22-29); Chloride 101 mmol/L (98-107); Globulin 3.1 g/dL (1.3-4.6); Glucose 89 mg/dL (65-115); Osmolality Calculated 283 mOsm/kg (285-295); Potassium 4.2 mmol/L (3.5-5.1); Sodium 137 mmol/L (136-145); Total Bilirubin 0.3 mg/dL (0.15-1.2); Total Protein 7.4 g/dL (6.6-8.7)
[2021-07-18 14:53] LABS: Bilirubin Urine Neg (Negative); Blood Urine Neg (Negative); Glucose Urine UA Norm (Normal); Ketones Urine Negative (Negative); Leukocyte Esterase Urine Negative (Negative); Nitrate Urine Negative (Negative); Protein Urine Neg (Negative); Urine Appearance Clear (CLEAR); Urine Color Straw (Yellow); Urobilinogen Urine Norm (Negative); pH Urine 6.5 (5-7)
[2021-07-18 14:54] VITALS: BP 180/96; PULSE 84; O2SAT 98
--- NOTE | 2021-07-18 15:02 | ED_ITS ---
HPI - Dizziness General: Chief Complaint: Dizziness Stated Complaint: UTI COMPLICATIONS/NAUSEA/DIZZY Time Seen by Provider: 07/18/21 14:52 History of Present Illness: HPI Narrative: 75-year-old female presents emergency room complaining of dizziness nausea began yesterday. She is currently taking antibiotics for bladder infection. She denies any trauma to her head. She has no focal neurologic deficit noted she notes that the dizziness is worsened byMovement of her head. She resolved by remaining still. She mentioned that she had bladder symptoms but states she started some antibiotics it has not gotten better yet looked at the nurses note she seemed to indicate to the nurse that she was done with the antibiotics. MD elicited complaint: dizziness Onset (ago): day(s) (1) Timing: gradual onset Severity: mild Description: room spinning Context: change in body position Exacerbating factors: other (Changing head position) Relieving factors: remaining still Associated symptoms: Denies abnormal vaginal bleeding, chest pain, chills, cough, diaphoresis, ear discharge, ear pressure, fevers/chills, headache(s), malaise, nausea, nasal congestion, palpitations, rash, short of breath, syncope, tinnitus, vomiting or weakness Associated neuro symptoms: Deny confusion, difficulty speaking, dysphagia, diplopia, extremity weakness, facial numbness, facial weakness, gait changes, numbness in extremities or visual changes Review of Systems Const: Denies: chills, malaise or diaphoresis ENMT: Denies: ear discharge, tinnitus or nasal congestion Card: Denies: chest pain, palpitations or syncope Resp: Denies: dyspnea, productive cough or non-productive cough GI: Denies: nausea, vomiting or dysphagia : Denies: flank pain, difficulty voiding, dysuria, urinary frequency or urinary urgency Skin/Breast: Denies: rash or pruritus Neuro: Denies: headache(s), numbness in extremities or confusion PFS ED PFSH: Medical History Nicotine dependence, cigarettes, uncomplicated Other specified depressive episodes Panic attacks Physical Exam Const: COMMON NORMALS: no acute distress GENERAL APPEARANCE: cooperative and comfortable ORIENTATION/CONSCIOUSNESS: Yes awake, Yes oriented to person, Yes oriented to place and Yes oriented to time HENMT: COMMON NORMALS: normocephalic, atraumatic and hearing grossly normal bilaterally HEAD & SCALP: normocephalic and atraumatic Neck/C-Spine: COMMON NORMALS: no JVD Resp: COMMON NORMALS: normal respiratory effort, No retractions, No use of accessory muscles and clear to auscultation bilaterally AUSCULTATION: clear to auscultation bilaterally Cardio: COMMON NORMALS: no JVD, regular rate, regular rhythm and No murmurs present (Cardio) RATE: regular rate RHYTHM: regular rhythm GI: COMMON NORMALS: Soft to palpation and No hepatosplenomegaly present AUSCULTATION: Yes normoactive bowel sounds PALPATION: Yes Soft to palpation, No Tenderness to palpation present (GI), No Guarding due to palpation present (GI) and Yes No hepatosplenomegaly present Extremity: COMMON NORMALS: normal to inspection, capillary refill normal, no clubbing, cyanosis or edema, no calf tenderness and no pedal edema Neuro: SENSORIUM/ORIENTATION: Yes oriented to person, Yes oriented to place and Yes oriented to time Skin: COMMON NORMALS: no rashes or lesions noted GENERAL SKIN EXAM: no rashes or lesions noted Course Vital Signs: Vital signs: Vital Signs Temperature 98.1 F 07/18/21 13:31 Pulse Rate 85 07/18/21 15:28 Respiratory Rate 16 07/18/21 13:31 Blood Pressure 136/82 07/18/21 15:28 Pulse Oximetry 98 07/18/21 15:28 MDM - Dizziness MDM Narrative: Medical decision making narrative: UA today is negative laboratory test reviewed. We will go ahead and discharge her home with meclizine to use as needed and follow-up as needed return if has further problems. Lab Data: Labs: Lab Results 07/18/21 07/18/21 07/18/21 13:50 13:52 13:52 WBC 6.5 10^3/uL 10^3/ uL (4.0-10.0) RBC 5.26 10^6/uL 10^6 /uL (4.1-5.3) Hgb 16.1 g/dL H g/dL (11.5-15.3) Hct 47.4 % H % (37.0-47.0) MCV 90.1 fl fl (81-99) MCH 30.6 pg pg (28.0-34.0) MCHC 34.0 g/dL g/dL (30.0-36.0) RDW 13.6 % % (12.1-15.1) Plt Count 217 10^3/cmm 10^3 /cmm (130-400) MPV 10.7 fL H fL (7.4-10.4) Neut % (Auto) 69.7 % % Lymph % (Auto) 18.8 % % Baker % (Auto) 8.5 % % Eos % (Auto) 1.5 % % Baso % (Auto) 0.9 % % Neut # (Auto) 4.51 10^3/uL 10^3 /uL (1.8-7.7) Lymph # (Auto) 1.2 10^3/uL 10^3/ uL (0.8-4.8) Baker # (Auto) 0.6 10^3/uL 10^3/ uL (0.2-0.9) Eos # (Auto) 0.1 10^3/uL 10^3/ uL (0.0-0.8) Baso # (Auto) 0.1 10^3/uL 10^3/ uL (0.0-0.1) Nucleated RBC % (a uto) 0 % % Nucleated RBCs # 0.0 /100WBC /100W BC Sodium 137 mmol/L mmol/L (136-145) Potassium 4.2 mmol/L mmol/L (3.5-5.1) Chloride 101 mmol/L mmol/L (98-107) Carbon Dioxide 22 mmol/L mmol/L (22-29) Anion Gap 18.2 (5-19) BUN 11 mg/dL mg/dL (8-23) Creatinine 0.6 mg/dL mg/dL (0.5-0.9) GFR Calculation Not Reportable Glucose 89 mg/dL mg/dL (65-115) POC Glucose Calculated Osmolal ity 283 mOsm/kg L mOs m/kg (285-295) Calcium 9.1 mg/dL mg/dL (8.5-10.5) Total Bilirubin 0.3 mg/dL mg/dL (0.15-1.2) AST 14 U/L U/L (0-32) ALT 8 U/L U/L (0-33) Alkaline Phosphata se 76 IU/L IU/L (35-105) Total Protein 7.4 g/dL g/dL (6.6-8.7) Albumin 4.3 g/dL g/dL (3.5-5.2) Globulin 3.1 g/dL g/dL (1.3-4.6) Urine Color Straw (Yellow) Urine Appearance Clear (CLEAR) Urine pH 6.5 (5-7) Ur Specific Gravit y 1.010 (1.005-1.030) Urine Protein Neg (Negative) Urine Glucose (UA) Norm (Normal) Urine Ketones Negative (Negative) Urine Blood Neg (Negative) Urine Nitrate Negative (Negative) Urine Bilirubin Neg (Negative) Urine Urobilinogen Norm mg/dL mg/dL (Negative) Ur Leukocyte Hallie ase Negative (Negative) 07/18/21 15:03 WBC RBC Hgb Hct MCV MCH MCHC RDW Plt Count MPV Neut % (Auto) Lymph % (Auto) Baker % (Auto) Eos % (Auto) Baso % (Auto) Neut # (Auto) Lymph # (Auto) Baker # (Auto) Eos # (Auto) Baso # (Auto) Nucleated RBC % (a uto) Nucleated RBCs # Sodium Potassium Chloride Carbon Dioxide Anion Gap BUN Creatinine GFR Calculation Glucose POC Glucose 105 mg/dL mg/dL (70-110) Calculated Osmolal ity Calcium Total Bilirubin AST ALT Alkaline Phosphata se Total Protein Albumin Globulin Urine Color Urine Appearance Urine pH Ur Specific Gravit y Urine Protein Urine Glucose (UA) Urine Ketones Urine Blood Urine Nitrate Urine Bilirubin Urine Urobilinogen Ur Leukocyte Hallie ase Discharge Plan Discharge Patient Disposition: Home Clinical Impression: Benign paroxysmal positional vertigo Condition: Stable Prescriptions: New meclizine 25 mg tablet 25 mg PO QID PRN (Reason: motion sickness) Qty: 30 RF: 0 No Action Janumet XR 50-1,000 mg tablet, ER multiphase 24 hr 1 tab PO DAILY RF: 0 Trulicity 0.75 mg/0.5 mL pen injector 0.75 mg SUBCUT Q7D RF: 0 Seroquel 200 mg tablet 200 mg PO BEDTIME Qty: 30 RF: 6 gabapentin 300 mg capsule 300 mg PO TID Qty: 90 RF: 6 Klonopin 0.5 mg tablet 0.5 mg PO BEDTIME Qty: 30 RF: 3 hydrocodone-acetaminophen 5-325 mg tablet 1 tab PO Q8H PRN (Reason: pain (scale score 7-10)) Qty: 9 RF: 0 atorvastatin 20 mg tablet 20 mg PO BEDTIME RF: 0 warfarin 7.5 mg Tablet See Rx Instructions .ROUTE .COMPLEX RF: 0 propranolol 40 mg tablet 40 mg PO BID RF: 0 Discharge Orders: Discharge ED (Routine); Ordered 07/18/21 Ordered By: Theron Khan Referrals: Keena He PA [Primary Care Provider] - Discharge Diet: Usual diet Discharge Activity: Resume usual activity Patient Instructions: Opioid Safety Coding Level of Care Code ED Electrical Maintenance Supervisor for Abdoul Fwd Exam Comprehensive
[2021-07-18 15:07] LABS: Glucose Point of Care 105 mg/dL (70-110)
[2021-07-18 15:08] VITALS: BP 136/82; BP 160/85; BP 161/98; PULSE 81; PULSE 84; PULSE 87
[2021-07-18] MEDS: meclizine 25 mg tablet PO (15:20)
[2021-07-18 15:28] VITALS: BP 136/82; PULSE 85; O2SAT 98
== END 2021-07-18 15:31 | disposition home or self-care (01) ==
PROVIDERS: Emergency Provider Family Medicine; PCP Physician Assistant
DX: H81.10 Benign paroxysmal vertigo, unspecified ear (principal); Z79.01 Long term (current) use of anticoagulants
CPT/HCPCS: 36416; 80053; 81003; 82962; 85025; 99283; J8597

== ENCOUNTER 2021-08-05 07:18 | Emergency (ER) | payer MEDICARE, SELFPAY ==
[2021-08-05 07:33] VITALS: BP 168/106; PULSE 87; RESP 18; TEMP 37.1; O2SAT 98; BMI 28.3
--- NOTE | 2021-08-05 07:47 | ED_ITS ---
Documented by User: DANIELA Gonzalez 08/05/21 10:00 HPI - Back Pain/Injury General: Chief Complaint: Back Pain/Injury Stated Complaint: SEVERE LOW BACK PAIN Time Seen by Provider: 08/05/21 07:21 History of Present Illness: HPI Narrative: Patient is a 75-year-old female comes to the ED with acute on chronic lower back pain. She has had this lower back pain before and says she goes to physical therapy currently to help with lower back pain. She says the pain is sharp stabbing pain in the lower back gets worse with movement. She rates the pain a 15 out of 10. Denies any injury or trauma to cause worsening symptoms. Denies any pain radiating down her legs. She denies any numbness tingling to extremities, dysuria, hematuria, pelvic anesthesia or bladder or bowel incontinence. Associated symptoms: Deny abdominal pain, chills, dysuria, fatigue, fever(s), hematuria, nausea or vomiting Review of Systems Const: Denies: fever(s), chills or fatigue Eyes: Denies: change in vision or eye discomfort ENMT: Denies: throat pain, odynophagia, nasal discharge or nasal congestion Card: Denies: chest pain, palpitations, edema, swelling of feet/ankles, dyspnea on exertion or orthopnea Resp: Denies: dyspnea, productive cough or non-productive cough GI: Denies: abdominal pain, nausea, vomiting, diarrhea, constipation or hematochezia : Denies: flank pain, dysuria or hematuria Musc: Reports: back pain (Acute on chronic lower back pain); Denies: neck pain or extremity swelling Skin/Breast: Denies: rash or new lesions Neuro: Denies: headache(s), numbness in extremities or weakness in extremities Psych: Denies: suicidal ideation [facility] ED PFSH: Medical History Nicotine dependence, cigarettes, uncomplicated Other specified depressive episodes Panic attacks Physical Exam Const: COMMON NORMALS: patient oriented x3, healthy appearing and alert GENERAL APPEARANCE: cooperative; not comfortable (Uncomfortable due to pain.) HENMT: COMMON NORMALS: normocephalic HEAD & SCALP: normocephalic MOUTH: Normal oral and palatal mucosa present THROAT: posterior oropharynx normal and uvula midline Neck/C-Spine: COMMON NORMALS: supple GENERAL: Yes normal visual inspection Resp: COMMON NORMALS: normal respiratory effort, No retractions, No use of accessory muscles and clear to auscultation bilaterally AUSCULTATION: clear to auscultation bilaterally Cardio: COMMON NORMALS: regular rate, regular rhythm, S1 normal heart sound present, S2 normal heart sound present, No gallops present (Cardio), No clicks present (Cardio), No murmurs present (Cardio) and Peripheral pulses 2+ throughout RATE: regular rate RHYTHM: regular rhythm HEART SOUNDS: S1 normal heart sound present and S2 normal heart sound present PERIPHERAL PULSES: Peripheral pulses 2+ throughout GI: COMMON NORMALS: Normal to inspection, nondistended, normoactive bowel sounds present, Soft to palpation, non-tender and no masses PALPATION: Yes Soft to palpation : COMMON NORMALS: Yes no CVA tenderness BLADDER/KIDNEY EXAM: Yes no CVA tenderness Back/Pelvis: COMMON NORMALS: no CVA tenderness LUMBAR SPINE/LOWER BACK: Yes pain with ROM, No lumbar spinal tenderness and Yes paraspinal muscle tenderness Lumbar paraspinal muscle tenderness: left left lumbar paraspinal muscle tenderness: L2 and L3 Neuro: COMMON NORMALS: patient oriented x3 and moves all extremities SENSORIUM/ORIENTATION: Yes alert Skin: GENERAL SKIN EXAM: dry skin Course ED course: Nurse told me that patient stated that she did not want to live like this anymore. I then went in and talked with patient about her statement. I asked her if she is feeling suicidal, and patient stated emphatically that she is not suicidal. she is in quite a bit of pain currently and has been dealing with this low back pain on and off for a while and just wants to get some relief/control of her acute on chronic lower back pain today. Vital Signs: Vital signs: Vital Signs Temperature 98.7 F 08/05/21 07:33 Pulse Rate 87 08/05/21 09:50 Respiratory Rate 15 08/05/21 09:50 Blood Pressure 168/90 08/05/21 09:50 Pulse Oximetry 95 08/05/21 09:50 MDM - Back Pain/Injury MDM Narrative: Medical decision making narrative: Patient is a 75-year-old female comes to the ED with acute on chronic lower back pain. Denies any injury or trauma to cause worsening symptoms. Patient has had this kind of back pain in the past and has had flareups like this before. Denies any cauda equina sym ptoms. Vitals stable. She had some left lumbar paraspinal muscle tenderness to palpation but no other exam findings noted. Patient was given a dose of morphine and Norflex while here in the ED and her symptoms improved and she was more comfortable. I talked with Dr. Khan about patient case. I went in and asked patient about her comments about not being able to live with this back pain and asked if she is suicidal and she denies being suicidal. I told her we will put a referral in for her to the pain management clinic, so they can evaluate her in better manage her lower back pain. I placed an order with case management for her to get referred to pain care clinic. Patient diagnosed with acute on chronic lower back pain and discharged home with a prescription for hydrocodone, Robaxin and prednisone. She was told to follow-up with her PCP in 5 to 7 days reevaluation. Return precautions given. Patient understood agree with plan. Discharge Plan Discharge Patient Disposition: Home Clinical Impression: Acute exacerbation of chronic low back pain Condition: Stable Prescriptions: New methocarbamol 750 mg tablet 750 mg PO Q8H PRN (Reason: muscle pain and spasms) Qty: 20 RF: 0 prednisone 20 mg tablet 20 mg PO BID 5 Days Qty: 10 RF: 0 No Action Janumet XR 50-1,000 mg tablet, ER multiphase 24 hr 1 tab PO DAILY RF: 0 Trulicity 0.75 mg/0.5 mL pen injector 0.75 mg SUBCUT Q7D RF: 0 Seroquel 200 mg tablet 200 mg PO BEDTIME Qty: 30 RF: 6 gabapentin 300 mg capsule 300 mg PO TID Qty: 90 RF: 6 Klonopin 0.5 mg tablet 0.5 mg PO BEDTIME Qty: 30 RF: 3 hydrocodone-acetaminophen 5-325 mg tablet 1 tab PO Q8H PRN (Reason: pain (scale score 7-10)) Qty: 9 RF: 0 atorvastatin 20 mg tablet 20 mg PO BEDTIME RF: 0 warfarin 7.5 mg Tablet See Rx Instructions .ROUTE .COMPLEX RF: 0 propranolol 40 mg tablet 40 mg PO BID RF: 0 meclizine 25 mg tablet 25 mg PO QID PRN (Reason: motion sickness) Qty: 30 RF: 0 Discharge Orders: Discharge ED (Routine); Ordered 08/05/21 Ordered By: Travis Seo Referrals: Keena He PA [Primary Care Provider] - Discharge Diet: Regular Discharge Activity: Increase activity as tolerated Patient Instructions: Acute Low Back Pain (ED), Chronic Back Pain (DC), Opioid Safety Activity Restrictions/Additional Instructions: Follow-up with medical provider as directed. Case management should be contacting you in the next several days set up an appointment with pain management clinic. Take medications as prescribed. Methocarbamol is a muscle relaxer and can cause some drowsiness so take at night before going to bed. Return to the ER or your medical provider if condition worsens. Please read and understand discharge instructions. Thank you for choosing [facility] for your healthcare needs today. Please realize this is an emergency room and that we are providing you with a medical screening exam and this may not be complete and all inclusive of all the testing and or work up that you may need to determine your ailment or severity of your illness. It is very important that you follow up as instructed or that you return to the Emergency Department should you have concerns or if your condition changes or worsens in any way. Sign Out Sign Out Data: Patient Sign Out occurred on 08/05/21 at 08:43. Patient's care was discussed, and care was transferred from to Theron Khan DO. Coding Level of Care Code ED Cad Draftsman for Chg Fwd Exam Comprehensive Documented by User: Theron Khan DO 08/05/21 08:52 HPI - Back Pain/Injury General: Chief Complaint: Back Pain/Injury Stated Complaint: SEVERE LOW BACK PAIN Time Seen by Provider: 08/05/21 07:21 History of Present Illness: HPI Narrative: 75-year-old female initially seen by midlevel. Chart reviewed. Did go and talk to the patient she complaining of low back pain without radiation to her extremities no difficulty with bowel or bladder she has had this in the past she cannot recall any exacerbating activities. She has had relief from the pain medication given to her by the [facility]. [facility] ED PFSH: Medical History Nicotine dependence, cigarettes, uncomplicated Other specified depressive episodes Panic attacks Course Vital Signs: Vital signs: Vital Signs Temperature 98.7 F 08/05/21 07:33 Pulse Rate 87 08/05/21 09:50 Respiratory Rate 15 08/05/21 09:50 Blood Pressure 168/90 08/05/21 09:50 Pulse Oximetry 95 08/05/21 09:50 MDM - Back Pain/Injury MDM Narrative: Medical decision making narrative: Seen the patient during the course of her visit after the [facility] syndrome. Pain in her back is much better. She does not really recall anything she did exacerbated she has had this pain in the past. Nurse made a comment in her charting over the patient reevaluated she reevaluate her dilated eye with pain. [facility] had addressed this with her as well and I confirm. She relates it was excited utterance, she states she has no intention of harming self or desire to harm herself at all. She never considered it in the past. She states it is simply because her shoulder could very hosted for her pain was. She is quite happy with the improvement. We discussed with her that it may be beneficial to go to the pain clinic. She is quite fine with this and hopefully will improve her back pain. Discharge Plan Discharge Patient Disposition: Home Clinical Impression: Acute exacerbation of chronic low back pain Condition: Stable Prescriptions: New methocarbamol 750 mg tablet 750 mg PO Q8H PRN (Reason: muscle pain and spasms) Qty: 20 RF: 0 prednisone 20 mg tablet 20 mg PO BID 5 Days Qty: 10 RF: 0 No Action Janumet XR 50-1,000 mg tablet, ER multiphase 24 hr 1 tab PO DAILY RF: 0 Trulicity 0.75 mg/0.5 mL pen injector 0.75 mg SUBCUT Q7D RF: 0 Seroquel 200 mg tablet 200 mg PO BEDTIME Qty: 30 RF: 6 gabapentin 300 mg capsule 300 mg PO TID Qty: 90 RF: 6 Klonopin 0.5 mg tablet 0.5 mg PO BEDTIME Qty: 30 RF: 3 hydrocodone-acetaminophen 5-325 mg tablet 1 tab PO Q8H PRN (Reason: pain (scale score 7-10)) Qty: 9 RF: 0 atorvastatin 20 mg tablet 20 mg PO BEDTIME RF: 0 warfarin 7.5 mg Tablet See Rx Instructions .ROUTE .COMPLEX RF: 0 propranolol 40 mg tablet 40 mg PO BID RF: 0 meclizine 25 mg tablet 25 mg PO QID PRN (Reason: motion sickness) Qty: 30 RF: 0 Discharge Orders: Discharge ED (Routine); Ordered 08/05/21 Ordered By: Travis Seo Referrals: Keena He PA [Primary Care Provider] - Discharge Diet: Regular Discharge Activity: Increase activity as tolerated Patient Instructions: Acute Low Back Pain (ED), Chronic Back Pain (DC), Opioid Safety Activity Restrictions/Additional Instructions: Follow-up with medical provider as directed. Case management should be contacting you in the next several days set up an appointment with pain man agement clinic. Take medications as prescribed. Methocarbamol is a muscle relaxer and can cause some drowsiness so take at night before going to bed. Return to the ER or your medical provider if condition worsens. Please read and understand discharge instructions. Thank you for choosing [facility] for your healthcare needs today. Please realize this is an emergency room and that we are providing you with a medical screening exam and this may not be complete and all inclusive of all the testing and or work up that you may need to determine your ailment or severity of your illness. It is very important that you follow up as instructed or that you return to the Emergency Department should you have concerns or if your condition changes or worsens in any way. Sign Out Sign Out Data: Patient Sign Out occurred on 08/05/21 at 08:43. Patient's care was discussed, and care was transferred from to Theron Khan DO. Coding Level of Care Code ED Cad Draftsman for Abdoul Fwsharmin Exam Comprehensive
[2021-08-05] MEDS: morphine 4 mg/mL SDV 1 mL IM (08:32)
[2021-08-05] MEDS: dexamethasone 10 mg/mL INJ IM (08:32)
[2021-08-05] MEDS: orphenadrine 30 mg/mL Inj 2 mL 60 MG IM (08:32)
[2021-08-05 09:50] VITALS: BP 168/90; PULSE 87; RESP 15; O2SAT 95
--- NOTE | 2021-08-06 15:42 | DCPLANNER ---
escrow manager had message to schedule a follow up appointment for patient with pain management. escrow manager called phone number [phone], to inform patient that block and case maker is unable to make referral to pain management. The pain management clinic will only accept referrals from primary care physician. escrow manager was unable to speak with patient at this time a voicemail was left for patient to return lining caser phone call.
== END 2021-08-05 09:50 | disposition home or self-care (01) ==
PROVIDERS: Emergency Provider Family Medicine; PCP Physician Assistant
DX: G89.29 Other chronic pain (principal); M54.50 Low back pain, unspecified; Z79.01 Long term (current) use of anticoagulants
CPT/HCPCS: 96372; 99283; J1100; J2270; J2360

== ENCOUNTER → 2021-08-24 07:41 | Outpatient (BNVA) | payer MEDICARE, SELFPAY | PROVIDERS: PCP Physician Assistant; Visit Provider Nurse Practitioner Psychiatric/Mental Health | DX: F41.0 Panic disorder [episodic paroxysmal anxiety] (principal); F32.89 Other specified depressive episodes; F17.210 Nicotine dependence, cigarettes, uncomplicated | CPT/HCPCS: 99214 ==

== ENCOUNTER → 2021-11-23 12:42 | Outpatient (BNVA) | payer MEDICARE, SELFPAY | PROVIDERS: PCP Physician Assistant; Visit Provider Nurse Practitioner Psychiatric/Mental Health | DX: F32.89 Other specified depressive episodes (principal); F41.0 Panic disorder [episodic paroxysmal anxiety]; F17.210 Nicotine dependence, cigarettes, uncomplicated; Z79.899 Other long term (current) drug therapy | CPT/HCPCS: 99214 ==

== ENCOUNTER 2021-11-29 14:01 | Emergency (ER) | payer MEDICARE, SELFPAY ==
[2021-11-29 14:56] VITALS: BP 147/88; PULSE 100; RESP 16; TEMP 37.1; O2SAT 97; BMI 28.3
--- NOTE | 2021-11-29 15:32 | CTR_ITS ---
PROCEDURE INFORMATION: Exam: CT Lumbar Spine Without Contrast Exam date and time: 11/29/2021 4:01 PM Age: 75 years old Clinical indication: Patient HX: Low back pain unable to walk; Additional info: Eval pathologies TECHNIQUE: Imaging protocol: Computed tomography images of the lumbar spine without contrast. Sagittal, oblique axial, and coronal reformatted images were created and reviewed. Radiation optimization: All CT scans at this facility use at least one of these dose optimization techniques: automated exposure control; mA and/or kV adjustment per patient size (includes targeted exams where dose is matched to clinical indication); or iterative reconstruction. COMPARISON: 1. CT lumbar spine wo con* [id number] 11/28/2020 1:[address] Abdomen/Pelvis w IV* [id number] 10/26/2018 9:54 PM RADIATION DOSE METRICS: Total DLP (mGy-cm): 2001.36 FINDINGS: Vertebrae: Stable indeterminate focus in the left adrenal gland compared with 10/26/2018. Hounsfield units show density greater than expected for an adenoma. This measures 1.0 x 1.6 cm (series 6, image 12). Vertebral body height is maintained. No acute fracture. No lytic or sclerotic bony lesions. Grade 1 retrolisthesis of L1 on L2 and L2 on L3 are stable and likely due degenerative changes. Discs/Spinal canal/Neural foramina: Vacuum phenomenon at T12-L1 through L3-L4. Stable small/moderate marginal osteophytes at all visualized spinal levels. Stable mild loss of disc space height at L1-L2 and L2-L3. Calcification of the posterior longitudinal ligament at L2-L3 is stable. Mild spinal canal stenosis at L1-L2, L3-L4, and L5-S1. Moderate spinal canal stenosis at L2-L3 and L4-L5. Multilevel foraminal stenosis of varying severity in the lumbar spine. Findings are stable. Kidneys and ureters: Nonobstructing stone in the left kidney measuring 1.7 mm (series 3, image 14).. Vasculature: Mild atherosclerotic changes in the visualized arteries. No evidence for aortic aneurysm. Soft tissues: No paravertebral soft tissue abnormality. No radiopaque foreign body. Low-density nodules in the right and left adrenal glands, consistent with adenomas. Right adrenal adenoma is partially visualized and measures 1.3 x 1.1 cm. The left adrenal adenoma measures 1.3 x 1.0 cm (series 3, images 1 and 7). These are stable compared with 10/26/2018. CT/CT lumbar spine wo con* [id number] IMPRESSION: 1. No acute fracture of the lumbar spine. 2. Multilevel degenerative changes of varying severity in the visualized spine. 3. Grade 1 retrolisthesis of L1 on L2 and L2 on L3 are stable and likely due degenerative changes. 4. Mild spinal canal stenosis at L1-L2, L3-L4, and L5-S1. Moderate spinal canal stenosis at L2-L3 and L4-L5. Multilevel foraminal stenosis of varying severity in the lumbar spine. Findings are stable. 5. Nonobstructing left renal stone. 6. Stable indeterminate focus in the left adrenal gland compared with 10/26/2018. Stability would suggest this is due to a benign process. 7. Stable bilateral adrenal adenomas compared with 10/26/2018 8. Incidental/nonacute findings are listed in the report.
--- NOTE | 2021-11-29 15:45 | W.ED.GENADLT ---
HPI - General Adult General: Chief complaint: Back Pain/Injury Stated complaint: Middle Back pain, hurts to walk Time Seen by Provider: 11/29/21 15:32 History of Present Illness: Patient is a 75-year-old female with history of chronic back pain, who presents to the emergency room for concerns of lower back pain today. Patient tells me she woke up this morning with similar pain is 9 out of 10 at this time and took some Tylenol without any relief of pain. Patient denies any trauma or recent fall. Patient denies any fever or chills, saddle numbness, incontinence, weakness or numbness in the lower extremity. Onset: 7 hrs ago Duration:ongoing Location:home Severity:moderate Associated symptoms: Deny chest pain, dyspnea, nausea, rash, palpitations or vomiting Review of Systems Const: Denies: fever(s) or chills Eyes: Denies: change in vision ENMT: Denies: mouth pain Card: Denies: chest pain or palpitations Resp: Denies: dyspnea or non-productive cough GI: Denies: abdominal pain, nausea, vomiting or diarrhea : Denies: dysuria Musc: Reports: back pain; Denies: extremity pain Skin/Breast: Denies: rash or new lesions Neuro: Denies: weakness in extremities Psych: Reports: other (Normal mood) Samir/Lymph: Denies: easy bruising [facility] ED PFSH: Medical History (Updated 11/29/21 @ 15:49 by Dominic Saxena MD) Diabetes Nicotine dependence, cigarettes, uncomplicated Other specified depressive episodes Panic attacks Social History (Updated 11/29/21 @ 15:47 by Dominic Saxena MD) Smoking and tobacco status: current every day smoker Alcohol intake: never Substance/Drug Use: never Physical Exam Const: COMMON NORMALS: alert HENMT: COMMON NORMALS: atraumatic HEAD & SCALP: atraumatic MOUTH: moist mucous membranes not abnormal Eye: COMMON NORMALS: EOMs intact bilaterally and conjunctivae normal CONJUNCTIVA: Yes conjunctivae normal Neck/C-Spine: COMMON NORMALS: full ROM and supple Resp: COMMON NORMALS: normal respiratory effort and clear to auscultation bilaterally AUSCULTATION: clear to auscultation bilaterally Cardio: COMMON NORMALS: regular rate RATE: regular rate GI: COMMON NORMALS: Soft to palpation and non-tender PALPATION: Yes Soft to palpation : OTHER: + No saddle anesthesia Back/Pelvis: OTHER: + Paraspinal L2-L3 area tenderness, midline lumbar tenderness to palpation Extremity: COMMON NORMALS: full ROM OTHER: +5/5 strength in the lower extremities Neuro: SENSORIUM/ORIENTATION: Yes alert MOTOR EXAM: No Abnormal motor strength present and Other motor observations present (no focal motor deficits) Psych: COMMON NORMALS: speech normal SPEECH: Yes normal speech MOOD & AFFECT: Yes euthymic mood Course Vital Signs: Vital signs: Vital Signs Temperature 98.8 F 11/29/21 14:56 Pulse Rate 72 11/29/21 17:29 Respiratory Rate 16 11/29/21 17:29 Blood Pressure 156/96 11/29/21 17:29 Pulse Oximetry 97 11/29/21 17:29 MDM - General Adult Medical Decision Making 75-year-old female with history chronic back pain presenting to the emergency room for atraumatic back pain since waking up this morning. Patient reports pain 6 out of 10. Patient has paraspinal and midline lumbar area tenderness. No signs of course of cord compression at this time. Given new onset of atraumatic pain, will evaluate with CT imaging. CT is negative for any acute finding. Patient received lidocaine and Tylenol with significant improvement in pain. Incidental findings of CT discussed extensively with patient. Patient received a copy of the CT report with the documented findings. Patient is instructed to follow up urgently with specialists. Rx: Tylenol, lidocaine patch, and menthol PRN pain Disposition: Discharge. Patient counseled regarding diagnostic impression, treatment plan. Patient given ED strict return precautions to return for continuation, worsening, or development of new symptoms. Instructed to f/u w/ PCP regarding symptoms today. Patient verbalized understanding. Lab Data Radiology Impressions Lumbar Spine CT 11/29/21 15:32 IMPRESSION: 1. No acute fracture of the lumbar spine. 2. Multilevel degenerative changes of varying severity in the visualized spine. 3. Grade 1 retrolisthesis of L1 on L2 and L2 on L3 are stable and likely due degenerative changes. 4. Mild spinal canal stenosis at L1-L2, L3-L4, and L5-S1. Moderate spinal canal stenosis at L2-L3 and L4-L5. Multilevel foraminal stenosis of varying severity in the lumbar spine. Findings are stable. 5. Nonobstructing left renal stone. 6. Stable indeterminate focus in the left adrenal gland compared with 10/26/2018. Stability would suggest this is due to a benign process. 7. Stable bilateral adrenal adenomas compared with 10/26/2018 8. Incidental/nonacute findings are listed in the report. Imaging Data Other Imaging: Radiologist's impression: [facility] [place] [address] CT Scan Report Signed Patient: Michelle Woods Unit #: [id number] : 1945 Age/Sex: 75 / F ADM Date: 11/29/21 Loc: ER Room/Bed: Attending Dr: Ordering Provider/Ordering MD: Dominic Saxena MD Date of Service: 11/29/21 Procedure(s): CT lumbar spine wo con* [id number] Accession Number(s): [id number] Report Number: [id number] PROCEDURE INFORMATION: Exam: CT Lumbar Spine Without Contrast Exam date and time: 11/29/2021 4:01 PM Age: 75 years old Clinical indication: Patient HX: Low back pain unable to walk; Additional info: Eval pathologies TECHNIQUE: Imaging protocol: Computed tomography images of the lumbar spine without contrast. Sagittal, oblique axial, and coronal reformatted images were created and reviewed. Radiation optimization: All CT scans at this facility use at least one of these dose optimization techniques: automated exposure control; mA and/or kV adjustment per patient size (includes targeted exams where dose is matched to clinical indication); or iterative reconstruction. COMPARISON: 1. CT lumbar spine wo con* [id number] 11/28/2020 1:[address] Abdomen/Pelvis w IV* [id number] 10/26/2018 9:54 PM RADIATION DOSE METRICS: Total DLP (mGy-cm): 2002.36 FINDINGS: Vertebrae: Stable indeterminate focus in the left adrenal gland compared with 10/26/2018. Hounsfield units show density greater than expected for an adenoma. This measures 1.0 x 1.6 cm (series 6, image 12). Vertebral body height is maintained. No acute fracture. No lytic or sclerotic bony lesions. Grade 1 retrolisthesis of L1 on L2 and L2 on L3 are stable and likely due degenerative changes. Discs/Spinal canal/Neural foramina: Vacuum phenomenon at T12-L1 through L3-L4. Stable small/moderate marginal osteophytes at all visualized spinal levels. Stable mild loss of disc space height at L1-L2 and L2-L3. Calcification of the posterior longitudinal ligament at L2-L3 is stable. Mild spinal canal stenosis at L1-L2, L3-L4, and L5-S1. Moderate spinal canal stenosis at L2-L3 and L4-L5. Multilevel foraminal stenosis of varying severity in the lumbar spine. Findings are stable. Kidneys and ureters: Nonobstructing stone in the left kidney measuring 1.7 mm (series 3, image 14).. Vasculature: Mild atherosclerotic changes in the visualized arteries. No evidence for aortic aneurysm. Soft tissues: No paravertebral soft tissue abnormality. No radiopaque foreign body. Low-density nodules in the right and left adrenal glands, consistent with adenomas. Right adrenal adenoma is partially visualized and measures 1.3 x 1.1 cm. The left adrenal adenoma measures 1.3 x 1.0 cm (series 3, images 1 and 7). These are stable compared with 10/26/2018. CT/CT lumbar spine wo con* [id number] IMPRESSION: 1. No acute fracture of the lumbar spine. 2. Multilevel degenerative changes of varying severity in the visualized spine. 3. Grade 1 retrolisthesis of L1 on L2 and L2 on L3 are stable and likely due degenerative changes. 4. Mild spinal canal stenosis at L1-L2, L3-L4, and L5-S1. Moderate spinal canal stenosis at L2-L3 and L4-L5. Multilevel foraminal stenosis of varying severity in the lumbar spine. Findings are stable. 5. Nonobstructing left renal stone. 6. Stable indeterminate focus in the left adrenal gland compared with 10/26/2018. Stability would suggest this is due to a benign process. 7. Stable bilateral adrenal adenomas compared with 10/26/2018 8. Incidental/nonacute findings are listed in the report. ? Dictated By: Nicky Pereira MD Signed By: Nicky Pereira MD Signed Date/Time: 11/29/21 1648 DD/ 1601 Discharge Plan Discharge Patient Disposition: Home Clinical Impression: Back pain Prescriptions: New acetaminophen 500 mg tablet 500 mg PO Q6H PRN (Reason: pain) 5 Days Qty: 20 0RF lidocaine 5 % adhesive patch,medicated 1 patch topical DAILY PRN (Reason: pain) 30 Days Qty: 30 0RF Rx Instructions: leave on most painful area for up to 12 hrs Biofreeze (menthol) 5 % gel 1 ea topical BID PRN (Reason: pain) 10 Days Qty: 1 0RF No Action Janumet XR 50-1,000 mg tablet, ER multiphase 24 hr 1 tab PO DAILY 0RF Trulicity 0.75 mg/0.5 mL pen injector 0.75 mg SUBCUT Q7D 0RF Rx Instructions: take on Tuesday. Seroquel 200 mg tablet 200 mg PO BEDTIME Qty: 30 6RF Rx Instructions: Take one tablet at bedtime gabapentin 300 mg capsule 300 mg PO TID Qty: 90 6RF Klonopin 0.5 mg tablet 0.5 mg PO .6 pm Qty: 30 3RF Rx Instructions: Take one tablet at 6 pm atorvastatin 20 mg tablet 20 mg PO BEDTIME 0RF warfarin 7.5 mg Tablet See Rx Instructions .ROUTE .COMPLEX 0RF Rx Instructions: take 7.5 mg one day, alternate days and use 5 mg on opposite days. propranolol 40 mg tablet 40 mg PO BID 0RF meclizine 25 mg tablet 25 mg PO QID PRN (Reason: motion sickness) Qty: 30 0RF Discharge Orders: Discharge ED (Routine); Ordered 11/29/21 Ordered By: Dominic Saxena Referrals: Keena He PA [Primary Care Provider] - Discharge Diet: Advance as tolerated Discharge Activity: Increase activity as tolerated Patient Instructions: Back Pain (ED) Activity Restrictions/Additional Instructions: Please come back to the emergency room to have worsening back pain, if have any problem with urination and bowel movementm if you have any weakness in the legs, numbness in the legs, or if you have any new or concerning complaints. Here's a copy of your CT report. Please follow up your doctors for this report. [address] [address] [address] Scan Report Signed Patient: Michelle Woods Unit #: [id number] : 1945 Age/Sex: 75 / F ADM Date: 11/29/21 Loc: ER Room/Bed: Attending Dr: Ordering Provider/Ordering MD: Dominic Saxena MD Date of Service: 11/29/21 Procedure(s): CT lumbar spine wo con* [id number] Accession Number(s): [id number] Report Number: [id number] PROCEDURE INFORMATION: Exam: CT Lumbar Spine Without Contrast Exam date and time: 11/29/2021 4:01 PM Age: 75 years old Clinical indication: Patient HX: Low back pain unable to walk; Additional info: Eval pathologies TECHNIQUE: Imaging protocol: Computed tomography images of the lumbar spine without contrast. Sagittal, oblique axial, and coronal reformatted images were created and reviewed. Radiation optimization: All CT scans at this facility use at least one of these dose optimization techniques: automated exposure control; mA and/or kV adjustment per patient size (includes targeted exams where dose is matched to clinical indication); or iterative reconstruction. COMPARISON: 1. CT lumbar spine wo con* [id number] 11/28/2020 1:[address] Abdomen/Pelvis w IV* [id number] 10/26/2018 9:54 PM RADIATION DOSE METRICS: Total DLP (mGy-cm): 2002.36 FINDINGS: Vertebrae: Stable indeterminate focus in the left adrenal gland compared with 10/26/2018. Hounsfield units show density greater than expected for an adenoma. This measures 1.0 x 1.6 cm (series 6, image 12). Vertebral body height is maintained. No acute fracture. No lytic or sclerotic bony lesions. Grade 1 retrolisthesis of L1 on L2 and L2 on L3 are stable and likely due degenerative changes. Discs/Spinal canal/Neural foramina: Vacuum phenomenon at T12-L1 through L3-L4. Stable small/moderate marginal osteophytes at all visualized spinal levels. Stable mild loss of disc space height at L1-L2 and L2-L3. Calcification of the posterior longitudinal ligament at L2-L3 is stable. Mild spinal canal stenosis at L1-L2, L3-L4, and L5-S1. Moderate spinal canal stenosis at L2-L3 and L4-L5. Multilevel foraminal stenosis of varying severity in the lumbar spine. Findings are stable. Kidneys and ureters: Nonobstructing stone in the left kidney measuring 1.7 mm (series 3, image 14).. Vasculature: Mild atherosclerotic changes in the visualized arteries. No evidence for aortic aneurysm. Soft tissues: No paravertebral soft tissue abnormality. No radiopaque foreign body. Low-density nodules in the right and left adrenal glands, consistent with adenomas. Right adrenal adenoma is partially visualized and measures 1.3 x 1.1 cm. The left adrenal adenoma measures 1.3 x 1.0 cm (series 3, images 1 and 7). These are stable compared with 10/26/2018. CT/CT lumbar spine wo con* [id number] IMPRESSION: 1. No acute fracture of the lumbar spine. 2. Multilevel degenerative changes of varying severity in the visualized spine. 3. Grade 1 retrolisthesis of L1 on L2 and L2 on L3 are stable and likely due degenerative changes. 4. Mild spinal canal stenosis at L1-L2, L3-L4, and L5-S1. Moderate spinal canal stenosis at L2-L3 and L4-L5. Multilevel foraminal stenosis of varying severity in the lumbar spine. Findings are stable. 5. Nonobstructing left renal stone. 6. Stable indeterminate focus in the left adrenal gland compared with 10/26/2018. Stability would suggest this is due to a benign process. 7. Stable bilateral adrenal adenomas compared with 10/26/2018 8. Incidental/nonacute findings are listed in the report. ? Dictated By: Nicky Pereira MD Signed By: Nicky Pereira MD Signed Date/Time: 11/29/21 1648 DD/ 1601 Coding Level of Care Code ED Director [employer] for [employer] Fwd Exam Comprehensive
[2021-11-29] MEDS: lidocaine 5% Patch 1 PATCH TOPICAL (17:28)
[2021-11-29 17:29] VITALS: BP 156/96; PULSE 72; RESP 16; O2SAT 97
== END 2021-11-29 17:30 | disposition home or self-care (01) ==
PROVIDERS: Emergency Provider Emergency Medicine; PCP Physician Assistant
DX: M54.50 Low back pain, unspecified (principal); F17.200 Nicotine dependence, unspecified, uncomplicated
CPT/HCPCS: 72131; 99282

== ENCOUNTER → 2022-02-17 12:49 | Outpatient (BNVA) | payer MEDICARE, SELFPAY | PROVIDERS: PCP Physician Assistant; Visit Provider Nurse Practitioner Psychiatric/Mental Health | DX: F41.0 Panic disorder [episodic paroxysmal anxiety] (principal); F32.89 Other specified depressive episodes; F17.210 Nicotine dependence, cigarettes, uncomplicated; Z79.899 Other long term (current) drug therapy | CPT/HCPCS: 99214 ==

== ENCOUNTER 2023-12-12 19:50 | Emergency (ER) | payer MEDICARE, MEDICAID, SELFPAY ==
[2023-12-12 19:51] VITALS: BP 168/86; PULSE 82; RESP 20; TEMP 36.7; O2SAT 97; BMI 29.9
--- NOTE | 2023-12-12 20:19 | ED_ITS ---
HPI - Abdominal Pain 2 General: Chief Complaint: Abdominal Pain Stated Complaint: ABD PAIN Time Seen by Provider: 12/12/23 19:54 History of Present Illness: Patient presents to the ER by EMS from [facility]. Patient developed right abdominal pain that began about 1.5 hours ago after eating dinner. Patient received 4 mg Zofran on route and her nausea has subsided but she still is having her pain. Patient had a cholecystectomy, appendectomy and partial colectomy in the past. Patient says she is never quite had pain like this before. Patient has had nausea and vomiting this time. The pain does not radiate but the pain is reproducible with palpation of the right side of the abdomen. Review of Systems 2 General: Reports: 10 or more systems reviewed and unremarkable except in HPI and below PFSH ED 2 PFSH: Medical History Psychiatric care Diabetes Nicotine dependence, cigarettes, uncomplicated Panic attacks Other specified depressive episodes Social History Smoking and tobacco/nicotine status: current every day tobacco/nicotine user Alcohol intake: never Substance/Drug Use: never Physical Exam 2 Const: COMMON NORMALS: no acute distress, average body habitus, patient oriented x3, no limitations, healthy appearing, alert and well nourished HENMT: COMMON NORMALS: normocephalic, atraumatic, hearing grossly normal bilaterally, external ears normal, Normal external nose present, moist oral mucous membranes and oropharynx normal HEAD & SCALP: normocephalic and atraumatic NOSE: Normal external nose present EXTERNAL EAR: Yes external ears normal Neck/C-Spine: COMMON NORMALS: no JVD Resp: COMMON NORMALS: normal respiratory effort, No retractions, No use of accessory muscles and clear to auscultation bilaterally AUSCULTATION: clear to auscultation bilaterally Cardio: COMMON NORMALS: no JVD, regular rate, regular rhythm, S1 normal heart sound present, S2 normal heart sound present, No gallops present (Cardio), No clicks present (Cardio), No murmurs present (Cardio) and No rub (Cardio) R ATE: regular rate RHYTHM: regular rhythm HEART SOUNDS: S1 normal heart sound present and S2 normal heart sound present GI: COMMON NORMALS: Normal to inspection, nondistended, normoactive bowel sounds present, Soft to palpation and No hepatosplenomegaly present; negative for non-tender (Tender to palpate right upper quadrant epigastric area, right lower quadran) PALPATION: Yes Soft to palpation and Yes No hepatosplenomegaly present Neuro: COMMON NORMALS: patient oriented x3 SENSORIUM/ORIENTATION: Yes alert Course 2 Vital Signs: Vital signs: Vital Signs Temperature 98.0 F 12/12/23 19:51 Pulse Rate 105 H 12/12/23 22:24 Respiratory Rate 20 H 12/12/23 19:51 Blood Pressure 148/78 12/12/23 22:24 Pulse Oximetry 92 12/12/23 22:24 Oxygen Delivery Me thod Room Air 12/12/23 22:24 MDM - Abdominal Pain Medical Decision Making Patient had lab work and urinalysis, this showed a mildly elevated white count of 16,000 otherwise pretty unremarkable. Patient had a contrasted CT scan of her abdomen pelvis which was unremarkable. Other than a large hiatal hernia that we knew she had. Patient says she is feeling much better after the Toradol. Patient will be discharged home to follow-up with PCP for further evaluation and testing. Differential Diagnosis Likely abdominal pain Medical Records I reviewed the patient's medical records. Lab Data I reviewed the patient's lab results. 12/12/23 20:25 12/12/23 20:25 Labs/Radiology: Radiology Impressions Abdomen/Pelvis CT 12/12/23 21:35 IMPRESSION: 1. No acute intra-abdominal process. 2. Post cholecystectomy and appendectomy. 3. Large hiatal hernia with no gastric outlet obstruction. Laboratory Results WBC 16.83 10^3/uL (3.29-11.43) H 12/12/23 20:25 RBC 5.38 10^6/uL (3.85-5.65) 12/12/23 20:25 Hgb 16.10 g/dL (11.27-16.99) 12/12/23 20:25 Hct 49.9 % (36-47) H 12/12/23 20:25 MCV 92.8 fl (85-98) 12/12/23 20:25 MCH 29.9 pg (27-33) 12/12/23 20: MCHC 32.3 g/dL (30-55) 12/12/23 20:25 RDW 13.7 % (12.1-15.1) 12/12/23 20:25 Plt Count 204 10^3/cmm (157-399) 12/12/23 20: MPV 10.7 fL (7.4-10.4) H 12/12/23 20:25 Neut % (Auto) 86.1 % 12/12/23 20: Lymph % (Auto) 6.0 % 12/12/23: Garvin % (Auto) 6.1 % 12/12/23 20: Eos % (Auto) 0.7 % 12/12/23 20: Baso % (Auto) 0.4 % 12/12/23: Neut # (Auto) 14.51 10^3/uL (1.8-7.7) H 12/12/23 20: Lymph # (Auto) 1.0 10^3/uL (0.8-4.8) 12/12/23 20: Garvin # (Auto) 1.0 10^3/uL (0.2-0.9) H 12/12/23 20:25 Eos # (Auto) 0.1 10^3/uL (0.0-0.8) 12/12/23 20: Baso # (Auto) 0.1 10^3/uL (0.0-0.1) 12/12/23: Nucleated RBC % (auto) 0 % 12/12/23: Nucleated RBCs # 0.0 /100WBC 12/12/23: PT 19.90 SECONDS (12.1-14.9) H 12/12/23 20:25 INR 1.63 (0.8-1.2) H 12/12/23 20:25 Sodium 141 mmol/L (136-145) 12/12/23 20:25 Potassium 4.4 mmol/L (3.5-5.1) 12/12/23 20: Chloride 102 mmol/L (98-107) 12/12/23 20:25 Carbon Dioxide 29 mmol/L (22-29) 12/12/23 20:25 Anion Gap 14.4 (5-19) 12/12/23 20:25 BUN 12 mg/dL (8-23) 12/12/23 20:25 Creatinine 0.8 mg/dL (0.5-0.9) 12/12/23 20:25 GFR Calculation Not Reportable 12/12/23 20: Glucose 148 mg/dL (65-115) H 12/12/23 20:25 Calculated Osmolality 295 mOsm/kg (285-295) 12/12/23 20:25 Calcium 9.9 mg/dL (8.5-10.5) 12/12/23 20: Magnesium 1.6 mg/dL (1.7-2.3) L 12/12/23 20:25 Total Bilirubin 0.4 mg/dL (0.15-1.2) 12/12/23 20: AST 18 U/L (0-32) 12/12/23 20: ALT 16 U/L (0-33) 12/12/23 20: Alkaline Phosphatase 91 U/L (35-105) 12/12/23 20:25 Total Protein 7.8 g/dL (6.6-8.7) 12/12/23 20: Albumin 4.1 g/dL (3.5-5.2) 12/12/23 20: Globulin 3.7 g/dL (1.3-4.6) 12/12/23 20: Lipase 10 U/L (13-60) L 12/12/23 20:25 Urine Color Yellow (Yellow) 12/12/23 21:20 Urine Appearance Clear (CLEAR) 12/12/23 21:20 Urine pH 5 (5-7) 12/12/23 21:20 Ur Specific [place] 1.015 (1.005-1.030) 12/12/23 21:20 Urine Protein Neg (Negative) 12/12/23 21:20 Urine Glucose (UA) Norm (Normal) 12/12/23 21:20 Urine Ketones Negative (Negative) 12/12/23 21:20 Urine Blood Neg (Negative) 12/12/23 21:20 Urine Nitrate Negative (Negative) 12/12/23 21:20 Urine Bilirubin Neg (Negative) 12/12/23 21:20 Urine Urobilinogen Neg mg/dL (Negative) 12/12/23 21:20 Ur Leukocyte Esterase Negative (Negative) 12/12/23 21:20 All radiology interpretation(s) finalized by discharge Discharge Plan Discharge Patient Disposition: Home Clinical Impression: Abdominal pain Qualifiers: Abdominal location: right upper quadrant Qualified Code(s): R10.11 - Right upper quadrant pain Condition: Stable Prescriptions: No Action Trulicity 0.75 mg/0.5 mL pen injector 0.75 mg SUBCUT Q7D Rx Instructions: take on Tuesday. warfarin 3 mg tablet See Rx Instructions PO DAILY Rx Instructions: 3 mg one day 4 mg the next day and repeat cycle orally daily Seroquel 200 mg tablet 200 mg PO BEDTIME Qty: 90 2RF Rx Instructions: Take one tablet at bedtime gabapentin 300 mg capsule 300 mg PO TID Qty: 270 2RF Rx Instructions: Take one capsule three times per day loperamide [Imodium A-D] 2 mg capsule 2 mg PO DAILY PRN acyclovir 800 mg tablet 800 mg PO TID magnesium hydroxide [Milk of Magnesia] 400 mg/5 mL suspension 5 ml PO DAILY PRN bisacodyl 10 mg suppository 10 mg MN DAILY PRN Fleet Enema 19-7 gram/118 mL enema 118 ml MN DAILY PRN omeprazole 20 mg capsule,delayed release(DR/EC) 20 mg PO DAILY estradiol 0.01 % (0.1 mg/gram) cream 1 appful vaginal .BID Weekly Rx Instructions: for 14 days acetaminophen [Tylenol] 325 mg capsule 650 mg PO QID PRN nystatin 100,000 unit/mL suspension 5 ml buccal QID Rx Instructions: administer 1/2 of dose in each side of the mouth tramadol 50 mg tablet 50 mg PO Q6H PRN Klonopin 0.5 mg tablet 0.5 mg PO DAILY PRN (Reason: anxiety) Qty: 30 3RF Rx Instructions: Take one tablet daily as needed for anxiety Discharge Orders: Discharge ED (Routine); Ordered 12/12/23 Ordered By: Mejia Santo Referrals: Keena He PA [Primary Care Provider] - 1 week Patient Instructions: Abdominal Pain (ED) Activity Restrictions/Additional Instructions: Your workup in ER did not show any acute cause of your abdominal pain. The only abnormality as well as your white count was mildly elevated but this may be due to a stress reaction. Please follow-up with your family practitioner within next 7 days for further evaluation and treatment. They may suggest you undergo an EGD or colonoscopy. Coding Level of Care Code ED [employer] Operator for [employer]oul Fwd
[2023-12-12] MEDS: sodium chloride 0.9% 1,000 ML 999 ML IV (20:28)
[2023-12-12] MEDS: ketorolac 30 mg/mL INJ IVP (20:28)
[2023-12-12 20:32] LABS: Basophils # 0.1 10^3/uL (0.0-0.1); Basophils % 0.4 %; Eosinophils # 0.1 10^3/uL (0.0-0.8); Eosinophils % 0.7 %; Hematocrit 49.9 % (36-47); Mean Corpuscular HGB Conc 32.3 g/dL (30-55); Mean Corpuscular Hemoglobin 29.9 pg (27-33); Mean Corpuscular Volume 92.8 fl (85-98); Mean Platelet Volume 10.7 fL (7.4-10.4); Monocytes % 6.1 %; Neutrophils # 14.51 10^3/uL (1.8-7.7); Neutrophils % 86.1 %; Nucleated Red Blood Cells % 0 %; Platelet Count 204 10^3/cmm (157-399); Red Blood Count 5.38 10^6/uL (3.85-5.65); Red Cell Distribution Width 13.7 % (12.1-15.1); White Blood Count 16.83 10^3/uL (3.29-11.43)
[2023-12-12 20:53] LABS: Alanine Aminotransferase 16 U/L (0-33); Albumin Level 4.1 g/dL (3.5-5.2); Alkaline Phosphatase 91 U/L (35-105); Anion Gap 14.4 (5-19); Aspartate Amino Transferase 18 U/L (0-32); Blood Urea Nitrogen 12 mg/dL (8-23); Calcium 9.9 mg/dL (8.5-10.5); Carbon Dioxide 29 mmol/L (22-29); Chloride 102 mmol/L (98-107); Creatinine Clr Calc Pharmacy 56.8197; Globulin 3.7 g/dL (1.3-4.6); Glucose 148 mg/dL (65-115); Lipase 10 U/L (13-60); Magnesium 1.6 mg/dL (1.7-2.3); Osmolality Calculated 295 mOsm/kg (285-295); Potassium 4.4 mmol/L (3.5-5.1); Sodium 141 mmol/L (136-145); Total Bilirubin 0.4 mg/dL (0.15-1.2); Total Protein 7.8 g/dL (6.6-8.7)
[2023-12-12 20:56] LABS: INR 1.63 (0.8-1.2)
[2023-12-12 21:28] LABS: Add Urine Microscopic? NO; Charge for UA Resulting for Rev
[2023-12-12 21:34] LABS: Bilirubin Urine Neg (Negative); Blood Urine Neg (Negative); Glucose Urine UA Norm (Normal); Ketones Urine Negative (Negative); Leukocyte Esterase Urine Negative (Negative); Nitrate Urine Negative (Negative); Protein Urine Neg (Negative); Specific Gravity, Urine 1.015 (1.005-1.030); Urine Appearance Clear (CLEAR); Urine Color Yellow (Yellow); Urobilinogen Urine Neg (Negative); pH Urine 5 (5-7)
--- NOTE | 2023-12-12 21:35 | CTR_ITS ---
PROCEDURE INFORMATION: Exam: CT Abdomen And Pelvis With Contrast Exam date and time: 12/12/2023 9:41 PM Age: 77 years old Clinical indication: Abdominal pain; Prior surgery; Surgery date: 6+ months; Surgery type: Appy, gb, colon; Additional info: Right sided abd pain, n/v, leukocytosis TECHNIQUE: Imaging protocol: Computed tomography of the abdomen and pelvis with contrast. Radiation optimization: All CT scans at this facility use at least one of these dose optimization techniques: automated exposure control; mA and/or kV adjustment per patient size (includes targeted exams where dose is matched to clinical indication); or iterative reconstruction. Contrast material: OMNI 350; Contrast volume: 100 ml; Contrast route: INTRAVENOUS (IV); COMPARISON: CT abdomen pelvis w con* [id number] 10/26/2018 9:54 PM RADIATION DOSE METRICS: Total DLP (mGy-cm): 676 FINDINGS: Diaphragm: There is a large hiatal hernia. Liver: Normal. No mass. Gallbladder and bile ducts: Surgical changes of cholecystectomy. Pancreas: Normal. No ductal dilation. Spleen: Normal. No splenomegaly. Adrenal glands: Stable mild nodular hypertrophy of both adrenal glands. Kidneys and ureters: Normal. No hydronephrosis. Stomach and bowel: Post partial colectomy of the distal colon. There is diverticulosis of the transverse colon with no changes of diverticulitis. The hepatic flexure is between the anterior abdominal wall in the liver. Appendix: Surgical changes of appendectomy. Intraperitoneal space: Unremarkable. No free air. No significant fluid collection. Vasculature: There are vascular calcifications. Lymph nodes: Unremarkable. No enlarged lymph nodes. Urinary bladder: Unremarkable as visualized. Reproductive: Unremarkable as visualized. Bones/joints: Mild degenerative of the symphysis pubis. 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 Mild degenerative disease of bilateral sacroiliac joints. There is curvature of the thoracolumbar spine convex to the right. Multilevel degenerative disease of the lumbar spine, most pronounced at L2-L3 with posterior osteophyte disc complex causing moderate bony canal stenosis. Soft tissues: There is a small fat containing umbilical hernia. There are bilateral fat containing inguinal hernias. CT/CT abdomen pelvis w con* [id number] IMPRESSION: 1. No acute intra-abdominal process. 2. Post cholecystectomy and appendectomy. 3. Large hiatal hernia with no gastric outlet obstruction.
[2023-12-12] MEDS: iohexol 350 mg/mL 500 mL Btl (per mL) IV (21:45)
--- NOTE | 2023-12-12 22:08 | PC.NURSE ---
This nurse spoke with Citlaly at [facility] regarding current patient status.
[2023-12-12 22:24] VITALS: BP 148/78; PULSE 105; O2SAT 92
== END 2023-12-12 23:13 | disposition home or self-care (01) ==
PROVIDERS: Emergency Provider Emergency Medicine; PCP Physician Assistant
DX: R10.11 Right upper quadrant pain (principal); Z79.85 Long-term (current) use of injectable non-insulin antidiabetic drugs; Z79.01 Long term (current) use of anticoagulants; E11.9 Type 2 diabetes mellitus without complications; Z72.0 Tobacco use
CPT/HCPCS: 74177; 80053; 81003; 83690; 83735; 85025; 85610; 96374; 99285; J1885; J7030; Q9967

== ENCOUNTER 2024-04-24 08:24 | Outpatient (CLI) | payer MEDICARE, MEDICAID, SELFPAY | END 2024-04-24 08:25 | disposition home or self-care (01) | LOC: SLEEP 08:26 | PROVIDERS: PCP Physician Assistant; Visit Provider Physician Assistant | DX: G47.33 Obstructive sleep apnea (adult) (pediatric) (principal); G47.36 Sleep related hypoventilation in conditions classified elsewhere | CPT/HCPCS: G0399 ==

== ENCOUNTER → 2024-06-18 14:01 | Outpatient (BNVA) | payer MEDICARE, MEDICAID, OTHER, SELFPAY | PROVIDERS: PCP Physician Assistant; Visit Provider Nurse Practitioner Psychiatric/Mental Health | DX: Z79.899 Other long term (current) drug therapy (principal) | CPT/HCPCS: 80061; 83036 ==